=== PATIENT | female | born 1960 | race Caucasian/White ===

== ENCOUNTER → 2016-08-08 | Outpatient (CLI) | payer BC, MEDICARE ==
--- NOTE | 2016-08-28 00:45 | ECWPNPC ---
PATIENT NAME: CARMELA LALA : 1960 GENDER: FEMALE VISIT DATE: 08/08/2016 DISCHARGE DATE: 08/08/16 1626 VISIT LOCKED DATE TIME: PHYSICIAN: JCARLOS GARCIA RESOURCE: JCARLOS GARCIA REASON FOR APPOINTMENT 1. BACK HISTORY OF PRESENT ILLNESS HISTORY OF PRESENT ILLNESS: PAIN THE PATIENT DESCRIBES THE PAIN... FALL RISK SCREENING: SCREENING :NO FALLS IN THE PAST YEAR TODAY'S VISIT: NOTES: RETURNS TODAY FOR FIRST VISIT SINCE 11/27/15. DID HAVE FALL IN 05/28 WITH INCREASE IN PAIN. RATES PAIN TODAY 8-9/10. DESCRIBES PAIN CONSTANT, ACHING, BURNING, SHARP AND STABBING TENDER, THROBBING AND SORE. PAIN IS SHOOTING DOIWN RIGHT LEG BEFORE INJECTION. BOTH LEGS HAVVE HEAVY AND NUMB FEELING OVER ANTERIOR THIGHS TO LEVEL OF KNEE. IS HAVING WEAKNESS IN RIGHT FOOT. IS HAVING INCREASED CONSTIPATION. . CURRENT MEDICATIONS TAKING CARVEDILOL 25 MG TABLET ORALLY TWICE DAILY TAKING LYRICA 100 MG CAPSULE 1 CAPSULE ORALLY THREE TIMES DAILY TAKING VALSARTAN 80 MG TABLET 1 TABLET ORALLY ONCE A DAY TAKING PANTOPRAZOLE SODIUM 40 MG TABLET DELAYED RELEASE 1 TABLET ORALLY ONCE A DAY TAKING ROPINIROLE HCL 0.25 MG TABLET 1 ORALLY TWICE DAILY TAKING PRIMIDONE 250 MG TABLET ONE HALF ORALLY TWICE DAILY TAKING ADVAIR DISKUS 250-50 MCG/DOSE AEROSOL POWDER BREATH ACTIVATED 1 PUFF INHALATION TWICE A DAY TAKING PROAIR HFA 108 (90 BASE) MCG/ACT AEROSOL SOLUTION 2 PUFFS NEEDED INHALATION QID PRN TAKING METFORMIN HCL 500 MG TABLET 1 TABLET WITH MEALS ORALLY TWICE A DAY TAKING TORSEMIDE 20 MG TABLET 2 ORALLY ONCE DAILY TAKING VITAMIN D 54022 U TABLET ORALLY TWICE A MONTH TAKING SAVELLA 25 MG TABLET 1 TABLET ORALLY TWICE A DAY TAKING ASPIRIN ADULT LOW DOSE 81 MG TABLET DELAYED RELEASE 1 TABLET ORALLY ONCE A DAY TAKING LEORA-COLACE 8.6-50 MG TABLET 1 TABLET IN THE EVENING NEEDED ORALLY ONCE A DAY NOT-TAKING VOLTAREN 1 % GEL DIRECTED TRANSDERMAL 4 GRAMS FOUR TIMES DAILY TO LOW BACK MEDICATION LIST REVIEWED AND RECONCILED WITH THE PATIENT PAST MEDICAL HISTORY DIABETES BLADDER WALL THICKENING BLOOD CLOT ON RIGHT OVARY ALLERGIES NEOMYCIN SULFATE: RASH: ALLERGY ADHESIVE TAPE: RASH: ALLERGY EYE DROPS: ALLERGY BACITRACIN: RASH: ALLERGY SURGICAL HISTORY CARPAL TUNNEL ON ELBOW 02/2015 VAGINAL HYSTER 12/2012 KNEE ARTHROSCOPY 09/2007 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 CONSTITUTIONAL: ANY CHANGE IN YOUR MEDICAL CONDITION? YES, CARPAL TUNNEL BILAT, AND PT STATES SHE NEEDS STOMACH SURGERY FOR POOR CARDIAC VALVE FUNCTION . CHILLS NO . FEVER NO . INFECTION: DO YOU HAVE NEW INFECTIONS? NO . DO YOU HAVE HISTORY OF MRSA? NO . MUSCULOSKELETAL: ANY NEW PATTERNS OF PAIN OR NUMBNESS? YES, BILAT THIGH NUMBNESS AFTER LONG PERIODS OF STANDING . GASTROENTEROLOGY: GENERAL TO HAVE GI SURGERY RELATED TO HIATAL HERNIA AND GI BLOATING WITH DR YUAN IN [place]. . ANY NEW CHANGE IN BOWEL CONTROL? YES, CONSTIPATION . GENITOURINARY: ANY NEW CHANGE IN BLADDER CONTROL? NO . IS THERE A CHANCE YOU COULD BE ? NO . HEMATOLOGY/LYMPH: DO YOU TAKE ANY BLOOD THINNERS? (FOR EXAMPLE- COUMADIN, PLAVIX, AGGRENOX, PLATEL, PRADAXA, OR XARELTO) NO . WHEN WAS YOUR LAST DOSE? DATE: TIME: . NEUROLOGY: HAVE YOU FALLEN IN THE PAST 6 MONTHS? YES, PT STATES SHE FELL FROM MISJUDGEMENT ABOUT 1-2 MONTHS AGO. PT STATES SHE SUFFERED CELLULITIS TO RIGHT LOWER LEG A RESULT OF FALL. PT STATES SHE DID SEEK MEDICAL ATTENTION AT [place] [facility] X3. PT STATES SHE RECEIVED IV ABX EACH TIME. . ANY NEW EXTREMITY NUMBNESS OR WEAKNESS? NO . CARDIOLOGY: DO YOU HAVE A PACEMAKER OR DEFIBRILLATOR? NO . RESPIRATORY: HAVE YOU BEEN SICK IN THE PAST WEEK? NO . FEVER NO . FLU LIKE SYMPTOMS? NO . GENERAL TO SEE DR TREVOR YEH FOR COPD PER NEW PCP FOR DYPSNEA, ASTHMA . COUGH NO . INTEGUMENTARY: DO YOU HAVE ANY RASHES OR OPEN SORES? NO . ALLERGIC/IMMUNO: ARE YOU ALLERGIC TO SHELLFISH OR IV DYE? NO . ANY NEW ALLERGIES? NO . PSYCHIATRIC: DO YOU HAVE THOUGHTS OF HURTING YOURSELF OR SOMEONE ELSE? NO . ARE YOU ABUSED, NEGLECTED, OR IN AN UNSAFE ENVIRONMENT? NO . ENDOCRINOLOGY: ARE YOU DIABETIC? YES - BLOOD SUGARS 190'S/ HBA1C&NBSP;. OTHER: DO YOU NEED ANY PRESCRIPTIONS? NO . IF YES, PLEASE LIST: ____ . ANY NEW PROBLEMS WITH YOUR MEDICATIONS? NO . WHEN DID YOU LAST EAT? ____ . WHEN DID YOU LAST DRINK? ____ . WHAT DID YOU LAST DRINK? ____ . NAME OF PERSON DRIVING YOU HOME? ____ . DO YOU HAVE ANY OTHER QUESTIONS OR CONCERNS NO . VITAL SIGNS WT 233 LBS, HT 66 IN, BMI 37.60 INDEX, BP 128/84 MM HG, HR 81 /MIN, RR 16 /MIN, TEMP 99.0 F, OXYGEN SAT % 96, SAFE IN ENV? (Y/N) Y, REVIEWED BY: EM. EXAMINATION GENERAL EXAMINATION: PSYCHALERT , ORIENTED X 3 , APPROPRIATE MOOD AND AFFECT . LUNGS:CLEAR TO AUSCULTATION BILATERALLY. HEART:HEART RATE REGULAR. MUSCULOSKELETAL:POINT TENDERNESS OVER LUMBAR SPINOUS PROCESSES AND OVER RIGHT SACRUM. TENDER TO PALPATION OVER RIGHT SIJ. , TRIGGER POINTS AND TIGHT FIBROUS BANDS IDENTIFIED OVER LEFT NECK AND SCAPULA AND ACROSS LUMBOSACRAL AXIS. , MUSCLE STRENGTH TESTING 5/5 BILATERAL UPPER AND LOWER EXTREMTIES. POSTURE UPRIGHT. GAIT NOANTALGIC. . ASSESSMENTS SACROILIITIS, NOT ELSEWHERE CLASSIFIED - M46.1 (PRIMARY) LOW BACK PAIN - M54.5 TREATMENT SACROILIITIS, NOT ELSEWHERE CLASSIFIED INJECTION ANESTHETIC SACROILIAC JOINTJCARLOS GARCIA 08/08/2016 4:13:06 PM > RIGHT NOTES: DO BLOOD SUGAR MORNING OF PROCEDURE. HOLD BLOOD SUGAR MEDS THE MORNING OF PROCEEDURE. PROCEDURE CODES FA211 ESTABILISHED PATIENT [facility] CHARGE DISPOSITION & COMMUNICATION FOLLOW UP AFTER INJECTION (REASON: CHECK AUTH FOR RIGHT SIJ) ELECTRONICALLY SIGNED BY NAE GARCIA ON 08/27/2016 AT 05:06 PM EDT DISCLAIMER : THIS IS A VISIT SUMMARY EXTRACTED FROM THE [employer] CHART. IT IS NOT A COPY OF THE [employer] PROGRESS NOTE. GABRIEL
== END ==
LOC: M PAIN 15:20
PROVIDERS: ATTEND Nurse Practitioner Family
DX: G89.29 Other chronic pain (principal); M46.1 Sacroiliitis, not elsewhere classified; M54.5 Low back pain; E11.9 Type 2 diabetes mellitus without complications; K59.00 Constipation, unspecified; L23.1 Allergic contact dermatitis due to adhesives; Z88.1 Allergy status to other antibiotic agents; Z88.8 Allergy status to other drugs, medicaments and biological substances; Z79.84 Long term (current) use of oral hypoglycemic drugs; Z79.82 Long term (current) use of aspirin; Z79.899 Other long term (current) drug therapy

== ENCOUNTER → 2016-09-11 | Outpatient (CLI) | payer BC, MEDICARE ==
[~2016-09-11] MED LIST: BUPIVACAINE HCL 0.25% 30 ML VIAL As Ordered ONE; ISOVUE-M 300 61% 15ML VIAL (Q9967) As Ordered ONE; LIDOCAINE 1% SDV INJ 30 ML VIAL As Ordered ONE; TRIAMCINOLONE ACETONIDE SUSP 40 MG/ML VIAL (J3301) As Ordered ONE; diazePAM 5 MG TAB As Ordered ONE; oxyCODONE 5MG TAB As Ordered ONE
--- NOTE | 2016-09-11 13:49 | REP ---
FLUOROSCOPIC GUIDANCE: The images were reviewed with Dr. Cardenas. The patient has a history of low back pain. The portable C-arm is provided in the OR for Dr. Leyva for fluoroscopic guidance. Two intraoperative fluoroscopic spot films are obtained for needle placement verification for bilateral sacroiliac joint. The films are on the PACS system and are available for review. 27 seconds of fluoroscopy time was utilized for this procedure. Reviewed by SOFIA Benavides 09/11/2016 03:02 PEdited and Signed by Meng Cardenas MD 09/11/2016 07:16 P
--- NOTE | 2016-09-26 01:27 | ECWPNPC ---
PATIENT NAME: CARMELA LALA : 1960 GENDER: FEMALE VISIT DATE: 09/11/2016 DISCHARGE DATE: 09/11/16 1047 VISIT LOCKED DATE TIME: PHYSICIAN: CHICO REYNA RESOURCE: CHICO REYNA REASON FOR APPOINTMENT 1. SIJ HISTORY OF PRESENT ILLNESS HISTORY OF PRESENT ILLNESS: PAIN THE PATIENT DESCRIBES THE PAIN... FALL RISK SCREENING: SCREENING :NO FALLS IN THE PAST YEAR CURRENT MEDICATIONS TAKING CARVEDILOL 25 MG TABLET ORALLY TWICE DAILY, NOTES: 09-11-16599 TAKING LYRICA 100 MG CAPSULE 1 CAPSULE ORALLY THREE TIMES DAILY, NOTES: 09-11-16699 TAKING VALSARTAN 80 MG TABLET 1 TABLET ORALLY ONCE A DAY, NOTES: 09-11-16599 TAKING PANTOPRAZOLE SODIUM 40 MG TABLET DELAYED RELEASE 1 TABLET ORALLY ONCE A DAY, NOTES: 09-10-16 1200 TAKING ROPINIROLE HCL 0.25 MG TABLET 1 ORALLY TWICE DAILY, NOTES: 09-11-16599 TAKING PRIMIDONE 250 MG TABLET ONE HALF ORALLY TWICE DAILY, NOTES: 09-11-16599 TAKING ADVAIR DISKUS 250-50 MCG/DOSE AEROSOL POWDER BREATH ACTIVATED 1 PUFF INHALATION TWICE A DAY, NOTES: 09-07-16899 TAKING PROAIR HFA 108 (90 BASE) MCG/ACT AEROSOL SOLUTION 2 PUFFS NEEDED INHALATION QID PRN, NOTES: 09-07-16899 TAKING METFORMIN HCL 500 MG TABLET 1 TABLET WITH MEALS ORALLY TWICE A DAY, NOTES: 09-10-16 190 TAKING TORSEMIDE 20 MG TABLET 2 ORALLY ONCE DAILY, NOTES: 09-11-16599 TAKING VITAMIN D 10493 U TABLET ORALLY TWICE A MONTH, NOTES: 08-12-16899 TAKING SAVELLA 12.5 MG TABLET 1 TABLET ORALLY TWICE A DAY, NOTES: 09-11-16599 TAKING ASPIRIN ADULT LOW DOSE 81 MG TABLET DELAYED RELEASE 1 TABLET ORALLY ONCE A DAY, NOTES: 09-11-16599 NOT-TAKING LEORA-COLACE 8.6-50 MG TABLET 1 TABLET IN THE EVENING NEEDED ORALLY ONCE A DAY, NOTES: NOT TAKING NOT-TAKING VOLTAREN 1 % GEL DIRECTED TRANSDERMAL 4 GRAMS FOUR TIMES DAILY TO LOW BACK MEDICATION LIST REVIEWED AND RECONCILED WITH THE PATIENT PAST MEDICAL HISTORY DIABETES BLADDER WALL THICKENING BLOOD CLOT ON RIGHT OVARY ALLERGIES NEOMYCIN SULFATE: RASH: ALLERGY ADHESIVE TAPE: RASH: ALLERGY EYE DROPS: ALLERGY BACITRACIN: RASH: ALLERGY REVIEW OF SYSTEMS REVIEWED BY: PROVIDER: . CONSTITUTIONAL: ANY CHANGE IN YOUR MEDICAL CONDITION? NO . CHILLS NO . FEVER NO . INFECTION: DO YOU HAVE NEW INFECTIONS? NO . DO YOU HAVE HISTORY OF MRSA? NO . MUSCULOSKELETAL: ANY NEW PATTERNS OF PAIN OR NUMBNESS? NO . GASTROENTEROLOGY: ANY NEW CHANGE IN BOWEL CONTROL? NO . GENITOURINARY: ANY NEW CHANGE IN BLADDER CONTROL? NO . IS THERE A CHANCE YOU COULD BE ? NO . HEMATOLOGY/LYMPH: DO YOU TAKE ANY BLOOD THINNERS? (FOR EXAMPLE- COUMADIN, PLAVIX, AGGRENOX, PLATEL, PRADAXA, OR XARELTO) NO . WHEN WAS YOUR LAST DOSE? DATE: TIME: . NEUROLOGY: HAVE YOU FALLEN IN THE PAST 6 MONTHS? NO . ANY NEW EXTREMITY NUMBNESS OR WEAKNESS? NO . CARDIOLOGY: DO YOU HAVE A PACEMAKER OR DEFIBRILLATOR? NO . RESPIRATORY: HAVE YOU BEEN SICK IN THE PAST WEEK? NO . FEVER NO . FLU LIKE SYMPTOMS? NO . COUGH NO . INTEGUMENTARY: DO YOU HAVE ANY RASHES OR OPEN SORES? NO . ALLERGIC/IMMUNO: ARE YOU ALLERGIC TO SHELLFISH OR IV DYE? NO . ANY NEW ALLERGIES? NO . PSYCHIATRIC: DO YOU HAVE THOUGHTS OF HURTING YOURSELF OR SOMEONE ELSE? NO . ARE YOU ABUSED, NEGLECTED, OR IN AN UNSAFE ENVIRONMENT? NO . ENDOCRINOLOGY: ARE YOU DIABETIC? NO . OTHER: DO YOU NEED ANY PRESCRIPTIONS? NO . IF YES, PLEASE LIST: ____ . ANY NEW PROBLEMS WITH YOUR MEDICATIONS? NO . WHEN DID YOU LAST EAT? ____LAST NIGHT 10 PM . WHEN DID YOU LAST DRINK? ____0630 THIS MORNING . WHAT DID YOU LAST DRINK? ____WATER . NAME OF PERSON DRIVING YOU HOME? ____RICHARD . DO YOU HAVE ANY OTHER QUESTIONS OR CONCERNS NO . VITAL SIGNS WT 234 LBS, HT 66 IN, BMI 37.76 INDEX, BP 113/56 MM HG, HR 74 /MIN, RR 16 /MIN, TEMP 99.2 F, OXYGEN SAT % 96%, NA INITIALS SC 09:04, REVIEWED BY: KG. ASSESSMENTS SACROILIITIS, NOT ELSEWHERE CLASSIFIED - M46.1 (PRIMARY) PROCEDURES PN SI PRE PROCEDURE DIAGNOSIS SACROILIITIS, SACROILIAC JOINT DYSFUNCTION POST PROCEDURE DIAGNOSIS SACROILIITIS, SACROILIAC JOINT DYSFUNCTION PROCEDURE BILATERAL SACROILIAC JOINT BLOCK SURGEON DR. CHICO REYNA SWITCHBOARD MANAGER NONE ANESTHESIA LOCAL PRE PROCEDURE NOTE PATIENT WITH HISTORY OF CHRONIC LOW BACK PAIN. I EVALUATED THE PATIENT AND REVIEWED THE CHART. I WENT OVER THE RISKS, ALTERNATIVES, AND BENEFITS ASSOCIATED WITH THIS PROCEDURE. THE PATIENT WOULD LIKE TO PROCEED AND GAVE CONSENT TO PERFORM THE PROCEDURE. THE PATIENT DENIES UNEXPLAINABLE WEIGHT LOSS, FEVER, CHILLS, OR NEW CHANGES IN URINARY OR BOWEL CONTROL DESCRIPTION OF PROCEDURE THE PATIENT WAS BROUGHT TO THE PROCEDURE ROOM AND PLACED IN THE PRONE POSITION. THE LUMBOSACRAL AREA WAS CLEANED WITH CHLORAPREP SOLUTION AND DRAPED ASEPTICALLY. THE PROCEDURE WAS DONE UNDER STERILE CONDITIONS. I CHECKED LATERALITY AND THE LEVEL WHERE THE PROCEDURE WAS GOING TO BE PERFORMED WITH THE PATIENT AND THE SUPPORTING STAFF AT THE MOMENT OF THE TIME OUT IN THE PROCEDURE ROOM. UNDER FLUOROSCOPIC GUIDANCE, TARGET POINT WAS SELECTED AT THE LOWER BORDER OF THE RIGHT AND LEFT SACROILIAC JOINT. TARGET POINT WAS SELECTED AFTER MEDIAL ROTATION AND TILT OF THE MAGNIFIER OF THE C-ARM. LIDOCAINE WAS USED TO NUMB THE SKIN AND SUBCUTANEOUS TISSUE BELOW IT. A SPINAL NEEDLE, 22-GAUGE, WAS ADVANCED UNDER FLUOROSCOPIC GUIDANCE AND FOLLOWING PATIENT FEEDBACK UNTIL THE TARGET AREA WAS TOUCHED. THE POSITION OF THE NEEDLE WAS VERIFIED WITH AP AND LATERAL VIEWS. AFTER PROPER POSITION OF THE NEEDLE WAS ACHIEVED, ISOVUE M DYE 30%, 0.25 ML, WAS INJECTED SHOWING SPREAD OF THE DYE. THEN, A SOLUTION OF 20 MG OF KENALOG WAS INJECTED IN RIGHT JOINT WITH 3 ML OF BUPIVACAINE 0.125%. THERE WAS NO EVIDENCE OF BLOOD, PARESTHESIA OR CEREBROSPINAL FLUID DURING THE PROCEDURE. THE PATIENT WAS SENT TO THE RECOVERY ROOM. THE PATIENT WAS MOVING THE EXTREMITIES AND DOING WELL. THERE WAS NO COMPLICATION DURING THE PROCEDURE. FLUOROSCOPY TIME WAS 27 SECONDS POST PROCEDURE NOTE THE PATIENT WILL BE SEEN IN A FOLLOW UP IN THE NEXT FEW WEEKS. INSTRUCTIONS WERE GIVEN, QUESTIONS WERE ANSWERED, AND THE PATIENT EXPRESSED UNDERSTANDING AND AGREED WITH THE PLAN. I, KARMEN TY, DOCUMENTED THE ABOVE INFORMATION ACTING A SCRIBE FOR DR. REYNA. I HAVE REVIEWED THE ABOVE DOCUMENT, WRITTEN BY KARMEN HOLDERIBEdgardo AND I VERIFY THAT IT IS [facility] FLUORO GUIDANCE (PAIN)[id number] PROCEDURE CODES 74261 INJECT SACROILIAC JOINT 6045F RADXPS IN END [id number] PXD DISPOSITION & COMMUNICATION FOLLOW UP 3 WEEKS ELECTRONICALLY SIGNED BY CHICO REYNA MD ON 09/25/2016 AT 07:08 PM EDT DISCLAIMER : THIS IS A VISIT SUMMARY EXTRACTED FROM THE [employer] CHART. IT IS NOT A COPY OF THE [employer] PROGRESS NOTE. MTDD
== END ==
LOC: M PAIN 08:40
PROVIDERS: ATTEND Anesthesiology
DX: G89.29 Other chronic pain (principal); M46.1 Sacroiliitis, not elsewhere classified; E11.9 Type 2 diabetes mellitus without complications; L23.3 Allergic contact dermatitis due to drugs in contact with skin; L23.1 Allergic contact dermatitis due to adhesives; Z79.84 Long term (current) use of oral hypoglycemic drugs; Z79.82 Long term (current) use of aspirin; Z79.899 Other long term (current) drug therapy
CPT/HCPCS: G0260; J3301; Q9967

== ENCOUNTER → 2016-10-23 | Outpatient (CLI) | payer BC, MEDICARE ==
--- NOTE | 2016-10-23 17:03 | REP ---
Clinical: Abnormal PFT. Technique: Axial noncontrast chest CT from the thoracic inlet to the upper abdomen imaged during inspiration and expiration with coronal and sagittal re-formations. Findings: Mild chronic linear fibroatelectatic changes are appreciated within the right middle lobe and to a lesser extent the left base. The lung morrison are otherwise well aerated and without consolidation, significant nodule or mass lesion. Comparison between inspiration and expiration imaging demonstrates normal decreased lung volumes without air trapping or subsequent abnormality. No pleural effusion or pneumothorax identified. The tracheobronchial tree is patent. No adenopathy noted. The mediastinum demonstrates normal thoracic aorta and heart/pericardium. No pericardial effusion is identified. The osseous structures are normal for age and without focal abnormality. Limited evaluation of the upper abdomen is grossly unremarkable. Impression: Very minimal chronic fibroatelectatic changes in the right middle lobe and to a lesser extent the left base. Otherwise normal noncontrast chest CT. Signed by Desmond Luevano MD 10/23/2016 08:54 A
== END ==
LOC: M RAD 08:12
PROVIDERS: ATTEND Internal Medicine Pulmonary Disease
DX: R94.2 Abnormal results of pulmonary function studies (principal)

== ENCOUNTER → 2016-10-31 | Outpatient (CLI) | payer BC, MEDICARE ==
--- NOTE | 2016-11-28 01:08 | ECWPNPC ---
PATIENT NAME: CARMELA LALA : 1960 GENDER: FEMALE VISIT DATE: 10/31/2016 DISCHARGE DATE: 10/31/16 1634 VISIT LOCKED DATE TIME: PHYSICIAN: JCARLOS GARCIA RESOURCE: JCARLOS GARCIA REASON FOR APPOINTMENT 1. BACK HISTORY OF PRESENT ILLNESS HISTORY OF PRESENT ILLNESS: PAIN THE PATIENT DESCRIBES THE PAIN... FALL RISK SCREENING: SCREENING :NO FALLS IN THE PAST YEAR TODAY'S VISIT: NOTES: S/P BILATERAL SIJ INJECTION ON 09/17/16. NOTES THE MIFDDLE BACK IS THE WORST AREA OF PAIN. NOTES THAT THE TREATED AREA AND THE HIPS ARE FEELING AREA. IS STILL HAVING SOME N/T IN LEGS PERTICULARLY WHEN STANDING. DR SERRANO FEELS THIS MAY BE MERALGIA PARESTHESICA. NO N/T IN FEET. SLEEP HAS IMPROVED RECENTLY. CURRENT MEDICATIONS TAKING CARVEDILOL 25 MG TABLET ORALLY TWICE DAILY TAKING LYRICA 100 MG CAPSULE 1 CAPSULE ORALLY THREE TIMES DAILY TAKING VALSARTAN 80 MG TABLET 1 TABLET ORALLY ONCE A DAY TAKING PANTOPRAZOLE SODIUM 40 MG TABLET DELAYED RELEASE 1 TABLET ORALLY ONCE A DAY TAKING ROPINIROLE HCL 0.25 MG TABLET 1 ORALLY TWICE DAILY TAKING PRIMIDONE 250 MG TABLET ONE HALF ORALLY TWICE DAILY TAKING ADVAIR DISKUS 250-50 MCG/DOSE AEROSOL POWDER BREATH ACTIVATED 1 PUFF INHALATION TWICE A DAY TAKING PROAIR HFA 108 (90 BASE) MCG/ACT AEROSOL SOLUTION 2 PUFFS NEEDED INHALATION QID PRN TAKING METFORMIN HCL 500 MG TABLET 1 TABLET WITH MEALS ORALLY TWICE A DAY TAKING TORSEMIDE 20 MG TABLET 2 ORALLY ONCE DAILY TAKING VITAMIN D 54661 U TABLET ORALLY TWICE A MONTH TAKING ASPIRIN ADULT LOW DOSE 81 MG TABLET DELAYED RELEASE 1 TABLET ORALLY ONCE A DAY NOT-TAKING SAVELLA 12.5 MG TABLET 1 TABLET ORALLY TWICE A DAY, NOTES: 09-11-16 0600 NOT-TAKING LEORA-COLACE 8.6-50 MG TABLET 1 TABLET IN THE EVENING NEEDED ORALLY ONCE A DAY, NOTES: NOT TAKING NOT-TAKING VOLTAREN 1 % GEL DIRECTED TRANSDERMAL 4 GRAMS FOUR TIMES DAILY TO LOW BACK MEDICATION LIST REVIEWED AND RECONCILED WITH THE PATIENT PAST MEDICAL HISTORY DIABETES BLADDER WALL THICKENING BLOOD CLOT ON RIGHT OVARY ALLERGIES NEOMYCIN SULFATE: RASH: ALLERGY ADHESIVE TAPE: RASH: ALLERGY EYE DROPS: ALLERGY BACITRACIN: RASH: ALLERGY REVIEW OF SYSTEMS REVIEWED BY: PROVIDER: JCARLOS GARCIA [employer] SALES DEVELOPMENT ASSOCIATE . CONSTITUTIONAL: ANY CHANGE IN YOUR MEDICAL CONDITION? HAVING SURGERY SATURDAY /// ZAIDA FUNDAPLICATION . CHILLS NO . FEVER NO . INFECTION: DO YOU HAVE NEW INFECTIONS? NO . DO YOU HAVE HISTORY OF MRSA? NO . MUSCULOSKELETAL: ANY NEW PATTERNS OF PAIN OR NUMBNESS? YES, IN THE MIDDLE OF THE BACK/ TENDER AND SORE . GASTROENTEROLOGY: ANY NEW CHANGE IN BOWEL CONTROL? NO . GENITOURINARY: ANY NEW CHANGE IN BLADDER CONTROL? NO . IS THERE A CHANCE YOU COULD BE ? NO . HEMATOLOGY/LYMPH: DO YOU TAKE ANY BLOOD THINNERS? (FOR EXAMPLE- COUMADIN, PLAVIX, AGGRENOX, PLATEL, PRADAXA, OR XARELTO) NO . WHEN WAS YOUR LAST DOSE? DATE: TIME: . NEUROLOGY: HAVE YOU FALLEN IN THE PAST 6 MONTHS? YES, FELL OVER A HOLE IN THE YARD / HURT HER KNEES . ANY NEW EXTREMITY NUMBNESS OR WEAKNESS? NO . CARDIOLOGY: DO YOU HAVE A PACEMAKER OR DEFIBRILLATOR? NO . RESPIRATORY: HAVE YOU BEEN SICK IN THE PAST WEEK? NO . FEVER NO . FLU LIKE SYMPTOMS? NO . COUGH NO . INTEGUMENTARY: DO YOU HAVE ANY RASHES OR OPEN SORES? NO . ALLERGIC/IMMUNO: ARE YOU ALLERGIC TO SHELLFISH OR IV DYE? NO . ANY NEW ALLERGIES? NO . PSYCHIATRIC: DO YOU HAVE THOUGHTS OF HURTING YOURSELF OR SOMEONE ELSE? NO . ARE YOU ABUSED, NEGLECTED, OR IN AN UNSAFE ENVIRONMENT? NO . ENDOCRINOLOGY: ARE YOU DIABETIC? YES . OTHER: DO YOU NEED ANY PRESCRIPTIONS? NO . IF YES, PLEASE LIST: ____ . ANY NEW PROBLEMS WITH YOUR MEDICATIONS? NO . WHEN DID YOU LAST EAT? ____ . WHEN DID YOU LAST DRINK? ____ . WHAT DID YOU LAST DRINK? ____ . NAME OF PERSON DRIVING YOU HOME? ____ . DO YOU HAVE ANY OTHER QUESTIONS OR CONCERNS NO . VITAL SIGNS WT 237 LBS, HT 66 IN, BMI 38.25 INDEX, BP 122/62 MM HG, HR 75 /MIN, RR 16 /MIN, TEMP 98.2 F, OXYGEN SAT % 93%, NA INITIALS AW 1549. EXAMINATION GENERAL EXAMINATION: PSYCHALERT , ORIENTED X 3 , AFFECT FLAT. LUNGS:CLEAR TO AUSCULTATION BILATERALLY. HEART:HEART RATE REGULAR. MUSCULOSKELETAL:POINT TENDERNESS OVER LUMBAR SPINOUS PROCESSES . EXTREMITIES:FEW INSECT BITES RIGHT GOYAL . ASSESSMENTS SACROILIITIS, NOT ELSEWHERE CLASSIFIED - M46.1 (PRIMARY) LOW BACK PAIN - M54.5 TREATMENT SACROILIITIS, NOT ELSEWHERE CLASSIFIED NOTES: WALK EVERY DAY. KEEP UP GOOD WORK WITH PEDOMETER. DISPOSITION & COMMUNICATION FOLLOW UP 6 WEEKS (REASON: BACK PAIN) ELECTRONICALLY SIGNED BY NAE GARCIA ON 11/27/2016 AT 02:40 PM EDT DISCLAIMER : THIS IS A VISIT SUMMARY EXTRACTED FROM THE [employer] CHART. IT IS NOT A COPY OF THE [employer] PROGRESS NOTE. MTDD
== END ==
LOC: M PAIN 15:00
PROVIDERS: ATTEND Nurse Practitioner Family
DX: G89.29 Other chronic pain (principal); M46.1 Sacroiliitis, not elsewhere classified; M54.5 Low back pain; E11.9 Type 2 diabetes mellitus without complications; L23.1 Allergic contact dermatitis due to adhesives; Z88.1 Allergy status to other antibiotic agents; Z88.8 Allergy status to other drugs, medicaments and biological substances; Z79.84 Long term (current) use of oral hypoglycemic drugs; Z79.82 Long term (current) use of aspirin; Z79.899 Other long term (current) drug therapy

== ENCOUNTER → 2017-01-07 | Outpatient (CLI) | payer BC, MEDICARE ==
--- NOTE | 2017-01-26 00:44 | ECWPNPC ---
PATIENT NAME: CARMELA LALA : 1960 GENDER: FEMALE VISIT DATE: 01/07/2017 DISCHARGE DATE: 01/07/17 1630 VISIT LOCKED DATE TIME: PHYSICIAN: JCARLOS GARCIA RESOURCE: JCARLOS GARCIA REASON FOR APPOINTMENT 1. BACK PAIN HISTORY OF PRESENT ILLNESS HISTORY OF PRESENT ILLNESS: PAIN THE PATIENT DESCRIBES THE PAIN... FALL RISK SCREENING: SCREENING :NO FALLS IN THE PAST YEAR TODAY'S VISIT: NOTES: NOTES WORST OF PAIN IS IN UPPER BACK NEAR LEFT SHOULDERBALDE. LOW BACK AND HIPS PAIN IS UNDER CONTROL RATES PAIN TODAY 09/20. HAD VENRAL HERNIA REPAIR 10/31/16 AND GASTRIC BYPASS SURGERY. HAS LOST WEIGHT. HAS BEEN INSTRUCTED TO CRUSH MEDS. . CURRENT MEDICATIONS TAKING CARVEDILOL 25 MG TABLET ORALLY TWICE DAILY TAKING LYRICA 100 MG CAPSULE 1 CAPSULE ORALLY THREE TIMES DAILY TAKING VALSARTAN 40 MG TABLET 1 TABLET ORALLY ONCE A DAY TAKING PANTOPRAZOLE SODIUM 40 MG TABLET DELAYED RELEASE 1 TABLET ORALLY ONCE A DAY TAKING PRIMIDONE 250 MG TABLET ONE HALF ORALLY TWICE DAILY TAKING TORSEMIDE 20 MG TABLET 2 ORALLY ONCE DAILY TAKING ASPIRIN ADULT LOW DOSE 81 MG TABLET DELAYED RELEASE 1 TABLET ORALLY ONCE A DAY NOT-TAKING ROPINIROLE HCL 0.25 MG TABLET 1 ORALLY TWICE DAILY NOT-TAKING ADVAIR DISKUS 250-50 MCG/DOSE AEROSOL POWDER BREATH ACTIVATED 1 PUFF INHALATION TWICE A DAY NOT-TAKING PROAIR HFA 108 (90 BASE) MCG/ACT AEROSOL SOLUTION 2 PUFFS NEEDED INHALATION QID PRN NOT-TAKING METFORMIN HCL 500 MG TABLET 1 TABLET WITH MEALS ORALLY TWICE A DAY NOT-TAKING VITAMIN D 32502 U TABLET ORALLY TWICE A MONTH UNKNOWN SAVELLA 12.5 MG TABLET 1 TABLET ORALLY TWICE A DAY, NOTES: 09-11-16 0600 UNKNOWN LEORA-COLACE 8.6-50 MG TABLET 1 TABLET IN THE EVENING NEEDED ORALLY ONCE A DAY, NOTES: NOT TAKING UNKNOWN VOLTAREN 1 % GEL DIRECTED TRANSDERMAL 4 GRAMS FOUR TIMES DAILY TO LOW BACK MEDICATION LIST REVIEWED AND RECONCILED WITH THE PATIENT PAST MEDICAL HISTORY DIABETES BLADDER WALL THICKENING BLOOD CLOT ON RIGHT OVARY ALLERGIES NEOMYCIN SULFATE: RASH: ALLERGY ADHESIVE TAPE: RASH: ALLERGY EYE DROPS: ALLERGY BACITRACIN: RASH: ALLERGY SURGICAL HISTORY CARPAL TUNNEL ON ELBOW 02/2015 VAGINAL HYSTER 12/2012 KNEE ARTHROSCOPY 09/2007 ACOUSTIC NEUROMA 08/1995 ENDOMETRIOSIS LAPROSCOPY 10/1991 LEFT EAR OPERATION 12/1989 GALL BLADDER 01/1985 WT LOSS SURGERY 2017 SOCIAL HISTORY GENERAL: TOBACCO USE ARE YOU A:FORMER SMOKER RECREATIONAL DRUG USE DRUG USE?NO CAFFEINE CAFFEINE USE?YES HOW OFTEN AND HOW MUCH? 2 CUPS PER DAY PSYCHOLOGICAL HX TREATMENTNO PAIN CLINIC PFS, CLERGY, PUBLIC HEALTH REFERRALS CLERGY REFERRAL NEEDED?NO WAS THE PROVIDER NOTIFIED OF ANY PERTINENT INFO?YES PFS REFERRAL NEEDED?NO PUBLIC HEALTH REFERRAL NEEDED?NO PATIENT: ____. ADVANCE DIRECTIVES HEALTH CARE PROXY?YES POWER OF AUTH SPECIALIST?NO NAME OF HCP JG LALA-SPOUSE CONTACT # FOR HCP [phone] REVIEW OF SYSTEMS REVIEWED BY: PROVIDER: . CONSTITUTIONAL: ANY CHANGE IN YOUR MEDICAL CONDITION? WT LOSS HAS ALLOWED HER TO STOP METFORMIN AND INHALERS. SHE FEELS SO MUCH BETTER NOW. . CHILLS NO . FEVER NO . INFECTION: DO YOU HAVE NEW INFECTIONS? NO . DO YOU HAVE HISTORY OF MRSA? NO . MUSCULOSKELETAL: ANY NEW PATTERNS OF PAIN OR NUMBNESS? NO . GASTROENTEROLOGY: ANY NEW CHANGE IN BOWEL CONTROL? NO . GENITOURINARY: ANY NEW CHANGE IN BLADDER CONTROL? NO . IS THERE A CHANCE YOU COULD BE ? NO . HEMATOLOGY/LYMPH: DO YOU TAKE ANY BLOOD THINNERS? (FOR EXAMPLE- COUMADIN, PLAVIX, AGGRENOX, PLATEL, PRADAXA, OR XARELTO) NO . WHEN WAS YOUR LAST DOSE? DATE: TIME: . NEUROLOGY: HAVE YOU FALLEN IN THE PAST 6 MONTHS? NO . ANY NEW EXTREMITY NUMBNESS OR WEAKNESS? NO . CARDIOLOGY: DO YOU HAVE A PACEMAKER OR DEFIBRILLATOR? NO . RESPIRATORY: HAVE YOU BEEN SICK IN THE PAST WEEK? NO . FEVER NO . FLU LIKE SYMPTOMS? NO . COUGH NO . INTEGUMENTARY: DO YOU HAVE ANY RASHES OR OPEN SORES? NO . ALLERGIC/IMMUNO: ARE YOU ALLERGIC TO SHELLFISH OR IV DYE? NO . ANY NEW ALLERGIES? NO . PSYCHIATRIC: DO YOU HAVE THOUGHTS OF HURTING YOURSELF OR SOMEONE ELSE? NO . ARE YOU ABUSED, NEGLECTED, OR IN AN UNSAFE ENVIRONMENT? NO . ENDOCRINOLOGY: ARE YOU DIABETIC? YES . OTHER: DO YOU NEED ANY PRESCRIPTIONS? NO . IF YES, PLEASE LIST: ____ . ANY NEW PROBLEMS WITH YOUR MEDICATIONS? NO . WHEN DID YOU LAST EAT? ____ . WHEN DID YOU LAST DRINK? ____ . WHAT DID YOU LAST DRINK? ____ . NAME OF PERSON DRIVING YOU HOME? ____ . DO YOU HAVE ANY OTHER QUESTIONS OR CONCERNS NO . VITAL SIGNS WT 215 LBS, HT 66 IN, BMI 34.70 INDEX, BP 111/53 MM HG, HR 50 /MIN, RR 16 /MIN, TEMP 97.5 F, OXYGEN SAT % 96%, NA INITIALS SC 15:33, REVIEWED BY: NL. EXAMINATION GENERAL EXAMINATION: PSYCHALERT , ORIENTED X 3 , AFFECT FLAT. LUNGS:CLEAR TO AUSCULTATION BILATERALLY. HEART:HEART RATE REGULAR. MUSCULOSKELETAL:POINT TENDERNESS OVER LUMBAR SPINOUS PROCESSES , TRIGGER POINTS:, ELICITED WITH PALPATION OVER LEFT SCAPULA AND ACROSS THE TRAPEZIUS MUSCLES BILATERALLY. RESTRICTION OF ROM IS NOTED. . ASSESSMENTS SACROILIITIS, NOT ELSEWHERE CLASSIFIED - M46.1 (PRIMARY) LOW BACK PAIN - M54.5 MYALGIA - M79.1 TREATMENT SACROILIITIS, NOT ELSEWHERE CLASSIFIED TRIGGER POINT 3 + JCARLOS BAHENA 01/07/2017 4:11:07 PM > LEFT SHOULDER BLADE NOTES: WALK EVERY DAY. KEEP WORKING [id number] STEP GOAL. PREVENTIVE MEDICINE REVIEWED PRE PROCEDURE INSTRUCTIONS WITH UNDERSTANDING EXPRESSED. PROCEDURE CODES FA211 ESTABILISHED PATIENT [facility] FAC[facility] CHARGE DISPOSITION & COMMUNICATION FOLLOW UP AFTER INJECTION (REASON: CHECK AUTH FOR TPI LEFT SHOULDER BLADE) ELECTRONICALLY SIGNED BY NAE GARCIA ON 01/25/2017 AT 08:02 PM EST DISCLAIMER : THIS IS A VISIT SUMMARY EXTRACTED FROM THE [employer] CHART. IT IS NOT A COPY OF THE [employer] PROGRESS NOTE. GABRIEL
== END ==
LOC: M PAIN 15:00
PROVIDERS: ATTEND Nurse Practitioner Family
DX: G89.29 Other chronic pain (principal); M46.1 Sacroiliitis, not elsewhere classified; M54.5 Low back pain; M79.1 Myalgia; E11.9 Type 2 diabetes mellitus without complications; L23.1 Allergic contact dermatitis due to adhesives; Z88.1 Allergy status to other antibiotic agents; Z88.8 Allergy status to other drugs, medicaments and biological substances; Z87.891 Personal history of nicotine dependence; Z79.82 Long term (current) use of aspirin; Z79.899 Other long term (current) drug therapy

== ENCOUNTER → 2017-02-20 | Outpatient (CLI) | payer BC, MEDICARE ==
[~2017-02-20] MED LIST changes: +BUPIVACAINE HCL 0.25% 10 ML VIAL As Ordered; +BUPIVACAINE HCL 0.25% 30 ML VIAL As Ordered; -BUPIVACAINE HCL 0.25% 30 ML VIAL As Ordered ONE; -ISOVUE-M 300 61% 15ML VIAL (Q9967) As Ordered ONE; -LIDOCAINE 1% SDV INJ 30 ML VIAL As Ordered ONE; +TRIAMCINOLONE ACETONIDE SUSP 40 MG/ML VIAL (J3301) As Ordered; -TRIAMCINOLONE ACETONIDE SUSP 40 MG/ML VIAL (J3301) As Ordered ONE; +diazePAM 5 MG TAB As Ordered; -diazePAM 5 MG TAB As Ordered ONE; +oxyCODONE 5MG TAB As Ordered; -oxyCODONE 5MG TAB As Ordered ONE
== END ==
LOC: M PAIN 15:15
DX: G89.29 Other chronic pain (principal); M54.6 Pain in thoracic spine; M79.1 Myalgia; E11.9 Type 2 diabetes mellitus without complications; Z88.1 Allergy status to other antibiotic agents; Z88.8 Allergy status to other drugs, medicaments and biological substances; Z91.048 Other nonmedicinal substance allergy status; Z79.82 Long term (current) use of aspirin; Z79.899 Other long term (current) drug therapy
CPT/HCPCS: J3301

== ENCOUNTER → 2017-03-06 | Outpatient (CLI) | payer BC, MEDICARE | LOC: M PAIN 15:15 | DX: M54.2 Cervicalgia (principal); M79.1 Myalgia; K59.00 Constipation, unspecified; E11.9 Type 2 diabetes mellitus without complications; Z79.82 Long term (current) use of aspirin; Z79.899 Other long term (current) drug therapy; Z88.1 Allergy status to other antibiotic agents; Z88.8 Allergy status to other drugs, medicaments and biological substances; Z91.048 Other nonmedicinal substance allergy status | CPT/HCPCS: G0463 ==

== ENCOUNTER → 2017-04-09 | Outpatient (CLI) | payer BC, MEDICARE | LOC: M PAIN 14:45 | DX: G89.29 Other chronic pain (principal); M79.1 Myalgia; M54.6 Pain in thoracic spine; E11.9 Type 2 diabetes mellitus without complications; Z87.891 Personal history of nicotine dependence; Z88.1 Allergy status to other antibiotic agents; Z88.8 Allergy status to other drugs, medicaments and biological substances; Z91.048 Other nonmedicinal substance allergy status; Z79.82 Long term (current) use of aspirin; Z79.899 Other long term (current) drug therapy | CPT/HCPCS: J3301 ==

== ENCOUNTER → 2017-04-29 | Outpatient (CLI) | payer BC, MEDICARE | LOC: M PAIN 15:15 | DX: M79.1 Myalgia (principal); M54.2 Cervicalgia; E11.9 Type 2 diabetes mellitus without complications; Z79.82 Long term (current) use of aspirin; Z79.899 Other long term (current) drug therapy; Z88.1 Allergy status to other antibiotic agents; Z88.8 Allergy status to other drugs, medicaments and biological substances; Z91.09 Other allergy status, other than to drugs and biological substances; Z98.84 Bariatric surgery status; Z87.891 Personal history of nicotine dependence | CPT/HCPCS: G0463 ==

== ENCOUNTER → 2017-05-27 | Outpatient (CLI) | payer BC, MEDICARE ==
[~2017-05-27] MED LIST changes: -BUPIVACAINE HCL 0.25% 10 ML VIAL As Ordered; +ISOVUE-M 300 61% 15ML VIAL (Q9967) As Ordered; +LIDOCAINE 1% SDV INJ 30 ML VIAL As Ordered
== END ==
LOC: M PAIN 11:45
DX: G89.29 Other chronic pain (principal); M47.812 Spondylosis without myelopathy or radiculopathy, cervical region; E11.9 Type 2 diabetes mellitus without complications; Z79.82 Long term (current) use of aspirin; Z79.899 Other long term (current) drug therapy; Z88.1 Allergy status to other antibiotic agents; Z88.8 Allergy status to other drugs, medicaments and biological substances; Z91.09 Other allergy status, other than to drugs and biological substances; Z98.84 Bariatric surgery status
CPT/HCPCS: J3301

== ENCOUNTER → 2017-08-02 | Outpatient (CLI) | payer BC, MEDICARE | LOC: M PAIN 14:15 | DX: M47.812 Spondylosis without myelopathy or radiculopathy, cervical region (principal); M79.1 Myalgia; Z79.82 Long term (current) use of aspirin; Z79.899 Other long term (current) drug therapy; Z88.1 Allergy status to other antibiotic agents; Z91.09 Other allergy status, other than to drugs and biological substances; Z87.891 Personal history of nicotine dependence | CPT/HCPCS: G0463 ==

== ENCOUNTER → 2017-08-27 | Outpatient (CLI) | payer BC, MEDICARE ==
[~2017-08-27] MED LIST changes: +BUPIVACAINE HCL 0.25% 10 ML VIAL As Ordered; -ISOVUE-M 300 61% 15ML VIAL (Q9967) As Ordered; -LIDOCAINE 1% SDV INJ 30 ML VIAL As Ordered
== END ==
LOC: M PAIN 14:30
DX: G89.29 Other chronic pain (principal); M79.1 Myalgia; M54.5 Low back pain; Z79.82 Long term (current) use of aspirin; Z79.899 Other long term (current) drug therapy; Z88.1 Allergy status to other antibiotic agents; Z88.8 Allergy status to other drugs, medicaments and biological substances; Z91.09 Other allergy status, other than to drugs and biological substances; Z98.84 Bariatric surgery status; Z87.891 Personal history of nicotine dependence
CPT/HCPCS: J3301

== ENCOUNTER → 2017-09-18 | Outpatient (CLI) | payer BC, MEDICARE | LOC: M PAIN 13:00 | DX: M54.16 Radiculopathy, lumbar region (principal); M51.26 Other intervertebral disc displacement, lumbar region; M79.1 Myalgia; Z79.82 Long term (current) use of aspirin; Z79.899 Other long term (current) drug therapy; Z87.891 Personal history of nicotine dependence; Z88.8 Allergy status to other drugs, medicaments and biological substances; Z91.048 Other nonmedicinal substance allergy status; Z90.710 Acquired absence of both cervix and uterus | CPT/HCPCS: G0463 ==

== ENCOUNTER → 2017-11-14 | Outpatient (CLI) | payer BC, MEDICARE ==
[~2017-11-14] MED LIST changes: -BUPIVACAINE HCL 0.25% 10 ML VIAL As Ordered; -BUPIVACAINE HCL 0.25% 30 ML VIAL As Ordered; +ISOVUE-M 300 61% 15ML VIAL (Q9967) As Ordered; +LIDOCAINE 1% SDV INJ 30 ML VIAL As Ordered; -TRIAMCINOLONE ACETONIDE SUSP 40 MG/ML VIAL (J3301) As Ordered; +methylPREDNISolone SUSP 40 MG/ML (DEPO-medrol) VIAL (J1030) As Ordered
== END ==
LOC: M PAIN 08:45
DX: M51.16 Intervertebral disc disorders with radiculopathy, lumbar region (principal); M48.062 Spinal stenosis, lumbar region with neurogenic claudication; I35.1 Nonrheumatic aortic (valve) insufficiency; Z87.891 Personal history of nicotine dependence; Z79.82 Long term (current) use of aspirin; Z79.899 Other long term (current) drug therapy; H91.93 Unspecified hearing loss, bilateral; Z88.1 Allergy status to other antibiotic agents; Z88.8 Allergy status to other drugs, medicaments and biological substances; Z91.048 Other nonmedicinal substance allergy status
CPT/HCPCS: J1030

== ENCOUNTER → 2017-11-22 | Outpatient (CLI) | payer BC, MEDICARE | LOC: M PAIN 11:45 | DX: M79.18 Myalgia, other site (principal); M54.16 Radiculopathy, lumbar region; M51.26 Other intervertebral disc displacement, lumbar region; Z79.82 Long term (current) use of aspirin; Z79.899 Other long term (current) drug therapy; Z88.1 Allergy status to other antibiotic agents; Z88.8 Allergy status to other drugs, medicaments and biological substances; Z91.09 Other allergy status, other than to drugs and biological substances; Z87.891 Personal history of nicotine dependence | CPT/HCPCS: G0463 ==

== ENCOUNTER → 2017-12-17 | Outpatient (CLI) | payer BC, MEDICARE ==
[~2017-12-17] MED LIST changes: +BUPIVACAINE HCL 0.25% 10 ML VIAL As Ordered; +BUPIVACAINE HCL 0.25% 30 ML VIAL As Ordered; -ISOVUE-M 300 61% 15ML VIAL (Q9967) As Ordered; -LIDOCAINE 1% SDV INJ 30 ML VIAL As Ordered; +TRIAMCINOLONE ACETONIDE SUSP 40 MG/ML VIAL (J3301) As Ordered; -methylPREDNISolone SUSP 40 MG/ML (DEPO-medrol) VIAL (J1030) As Ordered
== END ==
LOC: M PAIN 08:30
DX: M79.18 Myalgia, other site (principal); M25.511 Pain in right shoulder; M54.6 Pain in thoracic spine; Z79.82 Long term (current) use of aspirin; Z79.899 Other long term (current) drug therapy; Z88.1 Allergy status to other antibiotic agents; Z88.2 Allergy status to sulfonamides; Z88.8 Allergy status to other drugs, medicaments and biological substances; Z91.09 Other allergy status, other than to drugs and biological substances; Z87.891 Personal history of nicotine dependence; Z86.79 Personal history of other diseases of the circulatory system
CPT/HCPCS: J3301

== ENCOUNTER → 2018-04-17 | Outpatient (CLI) | payer BC, MEDICARE ==
--- NOTE | 2018-05-05 00:14 | ECWPNPC ---
PATIENT NAME: CARMELA LALA : 1960 GENDER: FEMALE VISIT DATE: 04/17/2018 DISCHARGE DATE: 04/17/18 1231 VISIT LOCKED DATE TIME: PHYSICIAN: NADINE MEJIA RESOURCE: NADINE MEJIA REASON FOR APPOINTMENT 1. SW WA, POST TPI HISTORY OF PRESENT ILLNESS HISTORY OF PRESENT ILLNESS: HERE FOR F/U OF CHRONIC GENERALIZED BACK PAIN.THIS BEGAN AFTER A FALL INJURY 3 YEARS AGO.THIS IS A POST PROCEDURE F/U.HAD TPI RIGHT SHOULDER AND RIGHT THORACIC ON 12/17/18.CONTINUES TO BENEFIT FROM THIS.CHIEF AREA OF PAIN IS RIGHT NECK.REVIEWED CERVICAL MRI AND DISCUSSED TREATMENT OPTIONS.RATING PAIN VAS 6/10. PAIN THE PATIENT DESCRIBES THE PAIN... FALL RISK SCREENING: SCREENING : NO FALLS IN THE PAST YEAR. CURRENT MEDICATIONS TAKING CARVEDILOL 12.5 MG TABLET ORALLY TWICE DAILY TAKING LYRICA 100 MG CAPSULE 1 CAPSULE ORALLY THREE TIMES DAILY TAKING PRIMIDONE 250 MG TABLET ONE HALF ORALLY TWICE DAILY TAKING TORSEMIDE 20 MG TABLET 2 ORALLY ONCE DAILY TAKING ASPIRIN ADULT LOW DOSE 81 MG TABLET DELAYED RELEASE 1 TABLET ORALLY ONCE A DAY TAKING VITAMIN D3 - LIQUID 25 MGS ORALLY DAILY TAKING ASPERCREME 10 % LOTION EXTERNALLY TAKING POTASSIUM BICARB-CITRIC ACID 10 MEQ TABLET EFFERVESCENT 1 TABLET ORALLY TWICE A DAY UNKNOWN MIRALAX SUSPENSION 17 GRAMS ORALLY AT HOUR OF SLEEP NEEDED, NOTES: NONE RECENTLY UNKNOWN ACETAMINOPHEN 325 MG TABLET 1 TABLET NEEDED ORALLY EVERY 4 HRS, NOTES: NONE RECENYLY MEDICATION LIST REVIEWED AND RECONCILED WITH THE PATIENT PAST MEDICAL HISTORY BLADDER WALL THICKENING BLOOD CLOT ON RIGHT OVARY LOW BACK PAIN CARPAL TUNNEL LEFT AND LEFT ELBOW PAIN AORTIC STENOSIS AND HEART MURMUR BICUSPID, AORTIC VALVE LOW POTASSIUM NEW DX ODF DEPPRESSION ALLERGIES NEOMYCIN SULFATE: RASH - ALLERGY ADHESIVE TAPE: RASH - ALLERGY BACITRACIN: RASH - ALLERGY FLOURACINE EYE DROPS: BURNING,ITCHY AND SWOLLEN EYES - ALLERGY SURGICAL HISTORY CARPAL TUNNEL ON ELBOW LEFT 02/2015 VAGINAL HYSTER 12/2012 KNEE ARTHROSCOPY-LEFT 09/2007 ACOUSTIC NEUROMA 08/1995 ENDOMETRIOSIS LAPROSCOPY 10/1991 LEFT EAR OPERATION 12/1989 GALL BLADDER 01/1985 OPEN ZAIDA FUNDOPLICATION 01/01/2017 APPENDECTOMY/ CYST REMOVED RIGHT OVARY 1974 LEFT CARPEL TUNNEL ELBOW AND HAND 11 FAMILY HISTORY FATHER: , DIAGNOSED WITH HYPERTENSION, HEART DISEASE, CANCER MOTHER: , DIABETES, HEART DISEASE, STROKE 2DAUGHTER(S) - HEALTHY. DAD-PROSTATE AND LUNG CADAUGHTER - BIPOLARDAUGHTER - HIGH CALCIUMBROGTHER DIALYSIS, IDDM. HOSPITALIZATION/MAJOR DIAGNOSTIC PROCEDURE CHESTPAIN R/O DC 2013 SURGERIES REVIEW OF SYSTEMS REVIEWED BY: PROVIDER: NADINE SCHWARTZ . CONSTITUTIONAL: ANY CHANGE IN YOUR MEDICAL CONDITION? LAST SATURDAY FELT SICK ..ENERGY AND STARTED FEELING BETTER YESTERDA . CHILLS NO . FEVER NO . INFECTION: DO YOU HAVE NEW INFECTIONS? NO . DO YOU HAVE HISTORY OF MRSA? NO . MUSCULOSKELETAL: ANY NEW PATTERNS OF PAIN OR NUMBNESS? NO . GASTROENTEROLOGY: ANY NEW CHANGE IN BOWEL CONTROL? NO . GENITOURINARY: ANY NEW CHANGE IN BLADDER CONTROL? NO . IS THERE A CHANCE YOU COULD BE ? NO . HEMATOLOGY/LYMPH: DO YOU TAKE ANY BLOOD THINNERS? (FOR EXAMPLE- COUMADIN, PLAVIX, AGGRENOX, PLATEL, PRADAXA, OR XARELTO) NO . WHEN WAS YOUR LAST DOSE? DATE: TIME: . NEUROLOGY: HAVE YOU FALLEN IN THE PAST 12 MONTHS? NO . ANY NEW EXTREMITY NUMBNESS OR WEAKNESS? NO . CARDIOLOGY: DO YOU HAVE A PACEMAKER OR DEFIBRILLATOR? NO . RESPIRATORY: HAVE YOU BEEN SICK IN THE PAST WEEK? NO . FEVER NO . FLU LIKE SYMPTOMS? NO . COUGH NO . INTEGUMENTARY: DO YOU HAVE ANY RASHES OR OPEN SORES? NO . ALLERGIC/IMMUNO: ARE YOU ALLERGIC TO IV DYE? NO . ANY NEW ALLERGIES? NO . PSYCHIATRIC: DO YOU HAVE THOUGHTS OF HURTING YOURSELF OR SOMEONE ELSE? NO . ARE YOU ABUSED, NEGLECTED, OR IN AN UNSAFE ENVIRONMENT? NO . ENDOCRINOLOGY: ARE YOU DIABETIC? NO . OTHER: DO YOU NEED ANY PRESCRIPTIONS? NO . IF YES, PLEASE LIST: ____ . ANY NEW PROBLEMS WITH YOUR MEDICATIONS? NO . WHEN DID YOU LAST EAT? ____ . WHEN DID YOU LAST DRINK? ____ . WHAT DID YOU LAST DRINK? ____ . NAME OF PERSON DRIVING YOU HOME? ____ . DO YOU HAVE ANY OTHER QUESTIONS OR CONCERNS PT OIS SEEING A THERAPIST ONCE A WEEK [place] . VITAL SIGNS WT 230 LBS, HT 66 IN, BMI 37.12 INDEX, BP 125/62 MM HG, HR 62 /MIN, RR 16 /MIN, TEMP 98.0 F, OXYGEN SAT % 93%, NA INITIALS SC 11:34. EXAMINATION GENERAL EXAMINATION: LUNGS:LUNG SOUNDS ARE CLEAR . HEART:HEART RATE REGULAR . MUSCULOSKELETAL:*, MUSCLE STRENGTH TESTING 5/5 BILATERAL UPPER EXTREMITIES. . CERVICAL+ FOR PAIN WITH PALPATION OF CERVICAL SPINE. + FOR PAIN WITH PALPATION OF CERVICAL PARASPINALS.SPECIFIC POINT TENDERNESS NOTED OVER RIGHT C4/5-/C5/6 CERVICAL FACETS WITH EXTENSION AND FACET LOADING. . DIAGNOSTIC TESTS REVIEWEDCERVICAL MRI -04/2016. 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 PROCEDURE CODES FA211 ESTABILISHED PATIENT [facility] CHARGE DISPOSITION & COMMUNICATION FOLLOW UP POST (REASON: RIGHT C4/5-C5/6 TFB) ELECTRONICALLY SIGNED BY LANA BRADFORD ON 05/04/2018 AT 03:53 PM EDT DISCLAIMER : THIS IS A VISIT SUMMARY EXTRACTED FROM THE [employer] CHART. IT IS NOT A COPY OF THE [employer] PROGRESS NOTE. GABRIEL
== END ==
LOC: M PAIN 11:00
PROVIDERS: ATTEND Nurse Practitioner Family
DX: M47.812 Spondylosis without myelopathy or radiculopathy, cervical region (principal); G89.29 Other chronic pain; F32.9 Major depressive disorder, single episode, unspecified; Z79.82 Long term (current) use of aspirin; Z79.899 Other long term (current) drug therapy; Z88.1 Allergy status to other antibiotic agents; Z88.8 Allergy status to other drugs, medicaments and biological substances; Z91.09 Other allergy status, other than to drugs and biological substances; Z86.79 Personal history of other diseases of the circulatory system

== ENCOUNTER → 2018-06-19 | Outpatient (CLI) | payer BC, MEDICARE ==
[~2018-06-19] MED LIST changes: -BUPIVACAINE HCL 0.25% 10 ML VIAL As Ordered; -BUPIVACAINE HCL 0.25% 30 ML VIAL As Ordered; +BUPIVACAINE HCL 0.25% 30 ML VIAL As Ordered ONE; +ISOVUE-M 300 61% 15ML VIAL (Q9967) As Ordered ONE; +LIDOCAINE 1% SDV INJ 30 ML VIAL As Ordered ONE; -TRIAMCINOLONE ACETONIDE SUSP 40 MG/ML VIAL (J3301) As Ordered; +TRIAMCINOLONE ACETONIDE SUSP 40 MG/ML VIAL (J3301) As Ordered ONE; -diazePAM 5 MG TAB As Ordered; +diazePAM 5 MG TAB As Ordered ONE; -oxyCODONE 5MG TAB As Ordered; +oxyCODONE 5MG TAB As Ordered ONE
--- NOTE | 2018-06-19 17:12 | REP ---
C-spine: Limited study two views. History: Cervical facet block injection for pain. 58 seconds of fluoroscopy time is reported. Findings: A sequence of two last image hold fluoroscopically obtained spot radiographs of the neck document needle position and contrast injection associated with cervical facet injection procedure. Electronically Signed by Nehemias Jones MD 06/20/2018 07:59 A
--- NOTE | 2018-07-05 23:40 | ECWPNPC ---
PATIENT NAME: CARMELA LALA : 1960 GENDER: FEMALE VISIT DATE: 06/19/2018 DISCHARGE DATE: 06/19/18 172 VISIT LOCKED DATE TIME: PHYSICIAN: CHICO REYNA MD RESOURCE: CHICO REYNA MD REASON FOR APPOINTMENT 1. THERAPEUTIC CERVICAL FACET BLOCK HISTORY OF PRESENT ILLNESS HISTORY OF PRESENT ILLNESS: PAIN THE PATIENT DESCRIBES THE PAIN... FALL RISK SCREENING: SCREENING :NO FALLS REPORTED IN THE LAST YEAR CURRENT MEDICATIONS TAKING CARVEDILOL 12.5 MG TABLET ORALLY TWICE DAILY, NOTES: 06/19/18699 TAKING LYRICA 100 MG CAPSULE 1 CAPSULE ORALLY THREE TIMES DAILY, NOTES: 06/19/18699 TAKING PRIMIDONE 250 MG TABLET ONE HALF ORALLY TWICE DAILY, NOTES: 06/19/18699 TAKING TORSEMIDE 20 MG TABLET 2 ORALLY ONCE DAILY, NOTES: 06/19/18699 TAKING ASPIRIN ADULT LOW DOSE 81 MG TABLET DELAYED RELEASE 1 TABLET ORALLY ONCE A DAY, NOTES: 06/19/18699 TAKING VITAMIN D3 - LIQUID 25 MGS ORALLY DAILY, NOTES: 06/19/18699 TAKING ASPERCREME 10 % LOTION EXTERNALLY , NOTES: NONE LATELY TAKING POTASSIUM BICARB-CITRIC ACID 10 MEQ TABLET EFFERVESCENT 1 TABLET ORALLY TWICE A DAY, NOTES: 06/19/18699 TAKING SPIRONOLACTONE 25 MG TABLET 1 TABLET ORALLY , NOTES: 06/19/18699 NOT-TAKING MIRALAX SUSPENSION 17 GRAMS ORALLY AT HOUR OF SLEEP NEEDED, NOTES: NONE RECENTLY NOT-TAKING ACETAMINOPHEN 325 MG TABLET 1 TABLET NEEDED ORALLY EVERY 4 HRS, NOTES: NONE RECENYLY MEDICATION LIST REVIEWED AND RECONCILED WITH THE PATIENT PAST MEDICAL HISTORY BLADDER WALL THICKENING BLOOD CLOT ON RIGHT OVARY LOW BACK PAIN CARPAL TUNNEL LEFT AND LEFT ELBOW PAIN AORTIC STENOSIS AND HEART MURMUR BICUSPID, AORTIC VALVE LOW POTASSIUM NEW DX ODF DEPPRESSION ALLERGIES NEOMYCIN SULFATE: RASH - ALLERGY ADHESIVE TAPE: RASH - ALLERGY BACITRACIN: RASH - ALLERGY FLOURACINE EYE DROPS: BURNING,ITCHY AND SWOLLEN EYES - ALLERGY SURGICAL HISTORY CARPAL TUNNEL ON ELBOW LEFT 02/2015 VAGINAL HYSTER 12/2012 KNEE ARTHROSCOPY-LEFT 09/2007 ACOUSTIC NEUROMA 08/1995 ENDOMETRIOSIS LAPROSCOPY 10/1991 LEFT EAR OPERATION 12/1989 GALL BLADDER 01/1985 OPEN ZAIDA FUNDOPLICATION 01/01/2017 APPENDECTOMY/ CYST REMOVED RIGHT OVARY 1975 LEFT CARPEL TUNNEL ELBOW AND HAND 11208 FAMILY HISTORY FATHER: , DIAGNOSED WITH CANCER, HYPERTENSION, HEART DISEASE MOTHER: , DIABETES, HEART DISEASE, STROKE 2DAUGHTER(S) - HEALTHY. DAD-PROSTATE AND LUNG CADAUGHTER - BIPOLARDAUGHTER - HIGH CALCIUMBROGTHER DIALYSIS, IDDM. SOCIAL HISTORY GENERAL: TOBACCO USE ARE YOU A:FORMER SMOKER OTHERS AT HOME: SPOUSE. DIET: REGULAR. LANGUAGE LANGUAGES SPOKEN:THAI DOMESTIC VIOLENCE DO YOU FEEL SAFE IN YOUR ENVIRONMENT?YES RECREATIONAL DRUG USE DRUG USE? NO. EXERCISE: STRECHES IN THE MORNING. LEARNING BARRIERS / SPECIAL NEEDS BARRIERS TO LEARNING?NO HEARING IMPAIRED?YES BILATERAL HEARING AIDS :HEARING AIDES VISION IMPAIRED?YES :CORRECTIVE LENSES COGNITIVELY IMPAIRED?NO READINESS TO LEARN?YES LEARNING PREFERENCES?NO LEARNING CAPABILITIES PRESENT?YES EMOTIONAL BARRIERS?NO SPECIAL DEVICES?NO GAGE MAKER NEEDED?NO PAIN CLINIC PFS, CLERGY, PUBLIC HEALTH REFERRALS PFS REFERRAL NEEDED?NO CLERGY REFERRAL NEEDED?NO PUBLIC HEALTH REFERRAL NEEDED?NO WAS THE PROVIDER NOTIFIED OF ANY PERTINENT INFO? N/A HAS THE PATIENT BEEN EDUCATED REGARDING HIS/HER PLAN OF CARE?YES HAS THE PATIENT BEEN EDUCATED REGARDING PAIN, THE RISK FOR PAIN, THE IMPORTANCE OF EFFECTIVE PAIN MANAGEMENT, AND THE PAIN ASSESSMENT PROCESS?YES CAFFEINE CAFFEINE USE? YES , HOW OFTEN AND HOW MUCH? 2 CUPS PER DAY. ADVANCE DIRECTIVE ADVANCE DIRECTIVE DISCUSSED WITH PATIENT:YES HCP--,JG [phone](H) [id number] RELIGIOUS MARITAL STATUS: . FEMALE 6 MONTH RISK ASSESSMENT FOR STD SPOUSE. ALCOHOL SCREENING DID YOU HAVE A DRINK CONTAINING ALCOHOL IN THE PAST YEAR?YES HOW OFTEN DID YOU HAVE A DRINK CONTAINING ALCOHOL IN THE PAST YEAR?MONTHLY OR LESS (1 POINT) HOW MANY DRINKS DID YOU HAVE ON A TYPICAL DAY WHEN YOU WERE DRINKING IN THE PAST YEAR?1 OR 2 (0 POINTS) HOW OFTEN DID YOU HAVE SIX OR MORE DRINKS ON ONE OCCASION IN THE PAST YEAR?NEVER (0 POINTS) POINTS1 INTERPRETATIONNEGATIVE OCCUPATION: DISABLED. 11/14/17 REVIEWED WITH PT. HENDRIX WITH PATIENT 11/22/17 1145 JS. HOSPITALIZATION/MAJOR DIAGNOSTIC PROCEDURE CHESTPAIN R/O [place] 2013 SURGERIES REVIEW OF SYSTEMS REVIEWED BY: PROVIDER: . CONSTITUTIONAL: ANY CHANGE IN YOUR MEDICAL CONDITION? NO . CHILLS NO . FEVER NO . INFECTION: DO YOU HAVE NEW INFECTIONS? NO . DO YOU HAVE HISTORY OF MRSA? NO . MUSCULOSKELETAL: ANY NEW PATTERNS OF PAIN OR NUMBNESS? NO . GASTROENTEROLOGY: ANY NEW CHANGE IN BOWEL CONTROL? NO . GENITOURINARY: ANY NEW CHANGE IN BLADDER CONTROL? NO . IS THERE A CHANCE YOU COULD BE ? NO . HEMATOLOGY/LYMPH: DO YOU TAKE ANY BLOOD THINNERS? (FOR EXAMPLE- COUMADIN, PLAVIX, AGGRENOX, PLATEL, PRADAXA, OR XARELTO) NO . WHEN WAS YOUR LAST DOSE? DATE: TIME: . NEUROLOGY: HAVE YOU FALLEN IN THE PAST 12 MONTHS? NO . ANY NEW EXTREMITY NUMBNESS OR WEAKNESS? NO . CARDIOLOGY: DO YOU HAVE A PACEMAKER OR DEFIBRILLATOR? NO . RESPIRATORY: HAVE YOU BEEN SICK IN THE PAST WEEK? NO . FEVER NO . FLU LIKE SYMPTOMS? NO . COUGH NO . INTEGUMENTARY: DO YOU HAVE ANY RASHES OR OPEN SORES? NO . ALLERGIC/IMMUNO: ARE YOU ALLERGIC TO IV DYE? NO . ANY NEW ALLERGIES? NO . PSYCHIATRIC: DO YOU HAVE THOUGHTS OF HURTING YOURSELF OR SOMEONE ELSE? NO . ARE YOU ABUSED, NEGLECTED, OR IN AN UNSAFE ENVIRONMENT? NO . ENDOCRINOLOGY: ARE YOU DIABETIC? NO . OTHER: DO YOU NEED ANY PRESCRIPTIONS? NO . IF YES, PLEASE LIST: ____ . ANY NEW PROBLEMS WITH YOUR MEDICATIONS? NO . WHEN DID YOU LAST EAT? 06/19/18 0700 . WHEN DID YOU LAST DRINK? 06/19/18 1330 . WHAT DID YOU LAST DRINK? WATER . NAME OF PERSON DRIVING YOU HOME? JG . DO YOU HAVE ANY OTHER QUESTIONS OR CONCERNS YES, NEW MED SPIRONOLATONE 25 MG . VITAL SIGNS WT 224.2 LBS, HT 66 IN, BMI 36.18 INDEX, BP 121/66 MM HG, HR 60 /MIN, RR 16 /MIN, TEMP 97.9 F, OXYGEN SAT % 97%, NA INITIALS SC 13:58, REVIEWED BY: EM. 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 CHICO REYNA RN CLINICAL REVIEW NONE ANESTHESIA LOCAL PRE PROCEDURE NOTE THE PATIENT HAS HISTORY OF CHRONIC CERVICAL PAIN. I EVALUATE THE PATIENT AND REVIEWED THE CHART. I WENT OVER THE RISKS, ALTERNATIVES, AND BENEFITS ASSOCIATED WITH THIS PROCEDURE. THE PATIENT WOULD LIKE TO PROCEED AND GIVE CONSENT TO PERFORMED THE PROCEDURE. THE PATIENT DENIES UNEXPLAINABLE WEIGHT LOSS, FEVER, CHILLS, OR NEW CHANGES IN URINARY OR BOWEL CONTROL. DESCRIPTION OF PROCEDURE THE PATIENT WAS BROUGHT TO THE PROCEDURE ROOM AND PLACED IN THE PRONE POSITION. THE CERVICOTHORACIC AREA WAS CLEANED WITH CHLORAPREP SOLUTION AND DRAPED ASEPTICALLY. THE PROCEDURE WAS DONE UNDER STERILE CONDITIONS. I CHECKED LATERALITY AND THE LEVEL WHERE THE PROCEDURE WAS GOING TO BE PERFORMED WITH THE PATIENT AND THE SUPPORTING STAFF AT THE MOMENT OF THE TIME OUT IN THE PROCEDURE ROOM. UNDER FLUOROSCOPIC GUIDANCE, TARGET POINT WAS SELECTED AT THE RIGHT C2-C3, RIGHT C3-C4, AND RIGHT C4-C5 CERVICAL FACET JOINT. TARGET POINTS WERE SELECTED AFTER LATERAL ROTATION AND TILT OF THE MAGNIFIER OF THE C-ARM. LIDOCAINE 0.5% WAS USED TO NUMB THE SKIN AND THE SUBCUTANEOUS TISSUE BELOW IT. SPINAL NEEDLES, 22-GAUGE, WERE ADVANCED UNDER FLUOROSCOPIC GUIDANCE AND FOLLOWING PATIENT FEEDBACK UNTIL THE TARGETS WERE TOUCHED. THE POSITION OF THE NEEDLES WAS VERIFIED WITH AP AND LATERAL VIEWS. AFTER PROPER POSITION OF THE NEEDLES WAS ACHIEVED, ISOVUE M DYE 30, 0.1 ML WAS INJECTED SHOWING SPREAD OF THE DYE. THEN A SOLUTION OF 0.9 ML OF BUPIVACAINE 0.125% AND KENALOG 10 MG WAS INJECTED AT EACH SITE. THERE WAS NO EVIDENCE OF BLOOD, PARESTHESIA OR CEREBROSPINAL FLUID DURING THE PROCEDURE. THE PATIENT WAS SENT TO THE RECOVERY ROOM. THE PATIENT WAS MOVING THE EXTREMITIES AND DOING WELL. THERE WAS NO COMPLICATION DURING THE PROCEDURE. FLUOROSCOPY TIME WAS 58 SECONDS POST PROCEDURE NOTE THE PATIENT WILL BE SEEN IN A FOLLOW UP IN THE NEXT FEW WEEKS. INSTRUCTIONS WERE GIVEN, QUESTIONS WERE ANSWERED, AND THE PATIENT EXPRESSED UNDERSTANDING AND AGREES WITH THE PLAN. I, HASEEB BERNAL, DOCUMENTED THE ABOVE INFORMATION ACTING A SCRIBE FOR DR. REYNA. I HAVE REVIEWED THE ABOVE DOCUMENT, WRITTEN BY HASEEB BERNAL SCRIBEdgardo AND I VERIFY THAT IT IS ACCURATE. PROCEDURE CODES 6045F RADXPS IN END [id number] PXD [id number] INJ PARAVERT F JNT C/T 1 LEV, MODIFIERS: [place] [address]85 INJ PARAVERT F JNT C/T 2 LEV, [place]IFI[place]: [place] [address] INJ PARAVERT F JNT C/T 3 LEV, MODIFIERS: RT DISPOSITION & COMMUNICATION FOLLOW UP 3 WEEKS ELECTRONICALLY SIGNED BY CHICO REYNA MD, MD ON 07/05/2018 AT 04:55 PM EDT DISCLAIMER : THIS IS A VISIT SUMMARY EXTRACTED FROM THE [employer] CHART. IT IS NOT A COPY OF THE [employer] PROGRESS NOTE. MTDD
== END ==
LOC: M PAIN 13:45
PROVIDERS: ATTEND Anesthesiology
DX: G89.29 Other chronic pain (principal); M47.812 Spondylosis without myelopathy or radiculopathy, cervical region; F32.9 Major depressive disorder, single episode, unspecified; Z98.2 Presence of cerebrospinal fluid drainage device; Z79.899 Other long term (current) drug therapy; Z88.1 Allergy status to other antibiotic agents; Z88.2 Allergy status to sulfonamides; Z88.8 Allergy status to other drugs, medicaments and biological substances; Z91.09 Other allergy status, other than to drugs and biological substances; Z86.79 Personal history of other diseases of the circulatory system; Z87.891 Personal history of nicotine dependence
CPT/HCPCS: 64490; 64491; 64492; J3301; Q9967

== ENCOUNTER → 2018-06-26 | Outpatient (CLI) | payer BC, MEDICARE ==
--- NOTE | 2018-07-16 01:45 | ECWPNPC ---
PATIENT NAME: CARMELA LALA : 1960 GENDER: FEMALE VISIT DATE: 06/26/2018 DISCHARGE DATE: 06/26/18 1457 VISIT LOCKED DATE TIME: PHYSICIAN: NADINE MEJIA RESOURCE: NADINE MEJIA REASON FOR APPOINTMENT 1. POST PROCEDURE HISTORY OF PRESENT ILLNESS HISTORY OF PRESENT ILLNESS: HERE FOR POST PROCEDURE F/U.HAD BILAT.CERVICAL FACET THERAPEUTIC BLOCK ON 06/19/18.REPORTING SIGNIFICANT REDUCTION IN PAIN POST PROCEDURE THAT CONTINUES TODAY.CHIEF AREA OF PAIN IS THORACIC AND LUMBAR.RATING PAIN VAS 9/10.PAIN RADIATES INTO RIGHT ANTERIOR LATERAL THIGH. PAIN THE PATIENT DESCRIBES THE PAIN... FALL RISK SCREENING: SCREENING :NO FALLS REPORTED IN THE LAST YEAR CURRENT MEDICATIONS TAKING CARVEDILOL 12.5 MG TABLET ORALLY TWICE DAILY, NOTES: 06/19/18699 TAKING LYRICA 100 MG CAPSULE 1 CAPSULE ORALLY THREE TIMES DAILY, NOTES: 06/19/18699 TAKING PRIMIDONE 250 MG TABLET ONE TABLET IN AM, 1/2 TABLET IN EVENING ORALLY , NOTES: 06/19/18699 TAKING TORSEMIDE 20 MG TABLET 2 ORALLY ONCE DAILY, NOTES: 06/19/18699 TAKING ASPIRIN ADULT LOW DOSE 81 MG TABLET DELAYED RELEASE 1 TABLET ORALLY ONCE A DAY, NOTES: 06/19/18699 TAKING VITAMIN D3 - LIQUID 25 MGS ORALLY DAILY, NOTES: 06/19/18699 TAKING ASPERCREME 10 % LOTION EXTERNALLY , NOTES: NONE LATELY TAKING POTASSIUM BICARB-CITRIC ACID 10 MEQ TABLET EFFERVESCENT 1 TABLET ORALLY TWICE A DAY, NOTES: 06/19/18699 TAKING SPIRONOLACTONE 25 MG TABLET 1 TABLET ORALLY , NOTES: 06/19/18699 TAKING ACETAMINOPHEN 325 MG TABLET 1 TABLET NEEDED ORALLY EVERY 4 HRS, NOTES: NONE RECENYLY NOT-TAKING MIRALAX SUSPENSION 17 GRAMS ORALLY AT HOUR OF SLEEP NEEDED, NOTES: NONE RECENTLY MEDICATION LIST REVIEWED AND RECONCILED WITH THE PATIENT PAST MEDICAL HISTORY BLADDER WALL THICKENING BLOOD CLOT ON RIGHT OVARY LOW BACK PAIN CARPAL TUNNEL LEFT AND LEFT ELBOW PAIN AORTIC STENOSIS AND HEART MURMUR BICUSPID, AORTIC VALVE LOW POTASSIUM NEW DX ODF DEPPRESSION ALLERGIES NEOMYCIN SULFATE: RASH - ALLERGY ADHESIVE TAPE: RASH - ALLERGY BACITRACIN: RASH - ALLERGY FLOURACINE EYE DROPS: BURNING,ITCHY AND SWOLLEN EYES - ALLERGY SURGICAL HISTORY CARPAL TUNNEL ON ELBOW LEFT 02/2015 VAGINAL HYSTER 12/2012 KNEE ARTHROSCOPY-LEFT 09/2007 ACOUSTIC NEUROMA 08/1995 ENDOMETRIOSIS LAPROSCOPY 10/1991 LEFT EAR OPERATION 12/1989 GALL BLADDER 01/1985 OPEN ZAIDA FUNDOPLICATION 01/01/2017 APPENDECTOMY/ CYST REMOVED RIGHT OVARY 1975 LEFT CARPEL TUNNEL ELBOW AND HAND 11 FAMILY HISTORY FATHER: , DIAGNOSED WITH HYPERTENSION, HEART DISEASE, CANCER MOTHER: , HEART DISEASE, STROKE, DIABETES 2DAUGHTER(S) - HEALTHY. DAD-PROSTATE AND LUNG CADAUGHTER - BIPOLARDAUGHTER - HIGH CALCIUMBROGTHER DIALYSIS, IDDM. SOCIAL HISTORY GENERAL: TOBACCO USE ARE YOU A:FORMER SMOKER OTHERS AT HOME: SPOUSE. DIET: REGULAR. LANGUAGE LANGUAGES SPOKEN:LITHUANIAN DOMESTIC VIOLENCE DO YOU FEEL SAFE IN YOUR ENVIRONMENT?YES RECREATIONAL DRUG USE DRUG USE? NO. EXERCISE: STRECHES IN THE MORNING. 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 N/A HAS THE PATIENT BEEN EDUCATED REGARDING HIS/HER PLAN OF CARE?YES HAS THE PATIENT BEEN EDUCATED REGARDING PAIN, THE RISK FOR PAIN, THE IMPORTANCE OF EFFECTIVE PAIN MANAGEMENT, AND THE PAIN ASSESSMENT PROCESS?YES CAFFEINE CAFFEINE USE? YES , HOW OFTEN AND HOW MUCH? 2 CUPS PER DAY. ADVANCE DIRECTIVE ADVANCE DIRECTIVE DISCUSSED WITH PATIENT:YES HCP--,JG [phone](H) ANGLICAN [id number] JAIN MARITAL STATUS: . FEMALE 6 MONTH RISK ASSESSMENT FOR STD SPOUSE. ALCOHOL SCREENING DID YOU HAVE A DRINK CONTAINING ALCOHOL IN THE PAST YEAR?YES HOW OFTEN DID YOU HAVE A DRINK CONTAINING ALCOHOL IN THE PAST YEAR?MONTHLY OR LESS (1 POINT) HOW MANY DRINKS DID YOU HAVE ON A TYPICAL DAY WHEN YOU WERE DRINKING IN THE PAST YEAR?1 OR 2 (0 POINTS) HOW OFTEN DID YOU HAVE SIX OR MORE DRINKS ON ONE OCCASION IN THE PAST YEAR?NEVER (0 POINTS) POINTS1 INTERPRETATIONNEGATIVE OCCUPATION: DISABLED. 11/14/17 REVIEWED WITH PT. ADREVIEWED WITH PATIENT 11/22/17 1145 JSREVIEWED WITH PATIENT 06/26/18 1415 LAS. HOSPITALIZATION/MAJOR DIAGNOSTIC PROCEDURE CHESTPAIN R/O RI 2013 SURGERIES REVIEW OF SYSTEMS REVIEWED BY: PROVIDER: NADINE SCHWARTZ . CONSTITUTIONAL: ANY CHANGE IN YOUR MEDICAL CONDITION? NO . CHILLS NO . FEVER NO . INFECTION: DO YOU HAVE NEW INFECTIONS? NO . DO YOU HAVE HISTORY OF MRSA? NO . MUSCULOSKELETAL: ANY NEW PATTERNS OF PAIN OR NUMBNESS? PT REPORTS THE PAIN IN HER NECK IS MUCH BETTER - PRIOR TO INJECTION, IT WAS AN 8, NOW REPORTED A 2. PT ALSO REPORTS PAIN IS WORSE IN LOW BACK . GASTROENTEROLOGY: ANY NEW CHANGE IN BOWEL CONTROL? NO . GENITOURINARY: ANY NEW CHANGE IN BLADDER CONTROL? NO . IS THERE A CHANCE YOU COULD BE ? NO . HEMATOLOGY/LYMPH: DO YOU TAKE ANY BLOOD THINNERS? (FOR EXAMPLE- COUMADIN, PLAVIX, AGGRENOX, PLATEL, PRADAXA, OR XARELTO) NO . WHEN WAS YOUR LAST DOSE? DATE: TIME: . NEUROLOGY: HAVE YOU FALLEN IN THE PAST 12 MONTHS? NO . ANY NEW EXTREMITY NUMBNESS OR WEAKNESS? YES PT REPORTS THAT AFTER PROLONGED STANDING (WHEN SHE STANDS TO DO DISHES OR COOK, FOR EXAMPLE) THE LATERAL PORTION OF HER RIGHT THIGH GOES NUMB . CARDIOLOGY: DO YOU HAVE A PACEMAKER OR DEFIBRILLATOR? NO . RESPIRATORY: HAVE YOU BEEN SICK IN THE PAST WEEK? NO . FEVER NO . FLU LIKE SYMPTOMS? NO . COUGH NO . INTEGUMENTARY: DO YOU HAVE ANY RASHES OR OPEN SORES? NO . ALLERGIC/IMMUNO: ARE YOU ALLERGIC TO IV DYE? NO . ANY NEW ALLERGIES? NO . PSYCHIATRIC: DO YOU HAVE THOUGHTS OF HURTING YOURSELF OR SOMEONE ELSE? NO . ARE YOU ABUSED, NEGLECTED, OR IN AN UNSAFE ENVIRONMENT? NO . ENDOCRINOLOGY: ARE YOU DIABETIC? NO . OTHER: DO YOU NEED ANY PRESCRIPTIONS? NO . IF YES, PLEASE LIST: ____ . ANY NEW PROBLEMS WITH YOUR MEDICATIONS? NO . WHEN DID YOU LAST EAT? ____ . WHEN DID YOU LAST DRINK? ____ . WHAT DID YOU LAST DRINK? ____ . NAME OF PERSON DRIVING YOU HOME? ____ . DO YOU HAVE ANY OTHER QUESTIONS OR CONCERNS NO . VITAL SIGNS WT 225 LBS, HT 66 IN, BMI 36.31 INDEX, BP 146/71 MM HG, HR 69 /MIN, RR 16 /MIN, TEMP 98.7 F, OXYGEN SAT % 95%, NA INITIALS SC 14:20. EXAMINATION GENERAL EXAMINATION: GENERAL APPEARANCE: AWAKE,ALERT ,PLEAASANT . PSYCH AFFECT NORMAL . LUNGS: LUNG NGUYEN ARE CLEAR TO AUSCULTATION BILATERALLY. GOOD MOVEMENT OF AIR . HEART: S1, S2 IN A REGULAR RATE AND RHYTHM. NO SIGNIFICANT MURMURS, RUBS OR GALLOPS NOTED . MUSCULOSKELETAL: WEAK OVER RIGHT LEG. LUMBAR SACRAL SPINE PALPATION: + FOR PAIN OVER L/S SPINE. + FOR PAIN OVER L/S PARASPINALS. NEUROLOGIC EXAM: NORMAL SENSATION LIGHT TOUCH BILAT. LOWER EXTREMITIES. DIAGNOSTIC TESTS REVIEWED MRI L/S SPINE-11/26/14. ASSESSMENTS LOW BACK PAIN - M54.5 (PRIMARY) LUMBAR RADICULOPATHY - M54.16 TREATMENT LOW BACK PAIN NOTES: L4/5 LESI. PREVENTIVE MEDICINE PAIN CLINIC TEACHING: PROCEDURE TEACHING LUMBAR EPIDURAL STEROID INJECTION PROCEDURE REVIEWED, PRE PROCEDURE INSTRUCTIONS GIVEN. . PROCEDURE CODES FA211 ESTABILISHED PATIENT NEW [facility] CHARGE DISPOSITION & COMMUNICATION FOLLOW UP POST (REASON: L4/5 LESI) ELECTRONICALLY SIGNED BY LANA BRADFORD ON 07/15/2018 AT 12:57 PM EDT DISCLAIMER : THIS IS A VISIT SUMMARY EXTRACTED FROM THE [facility] CHART. IT IS NOT A COPY OF THE [facility] PROGRESS NOTE. GABRIEL
== END ==
LOC: M PAIN 14:15
PROVIDERS: ATTEND Nurse Practitioner Family
DX: M54.16 Radiculopathy, lumbar region (principal); F32.9 Major depressive disorder, single episode, unspecified; Z79.82 Long term (current) use of aspirin; Z79.899 Other long term (current) drug therapy; Z88.1 Allergy status to other antibiotic agents; Z88.8 Allergy status to other drugs, medicaments and biological substances; Z91.09 Other allergy status, other than to drugs and biological substances

== ENCOUNTER → 2018-08-07 | Outpatient (CLI) | payer BC, MEDICARE ==
[~2018-08-07] MED LIST changes: -BUPIVACAINE HCL 0.25% 30 ML VIAL As Ordered ONE; -TRIAMCINOLONE ACETONIDE SUSP 40 MG/ML VIAL (J3301) As Ordered ONE; +methylPREDNISolone SUSP 40 MG/ML (DEPO-medrol) VIAL (J1030) As Ordered ONE
--- NOTE | 2018-08-07 16:30 | REP ---
Partial lumbar spine series: Two views . History: Injection procedure for pain. 23 seconds of fluoroscopy time is reported. Findings: A sequence of two fluoroscopically obtained last image hold procedural spot radiographs of the lumbar spine document needle position and contrast injection associated with injection procedure. Electronically Signed by Nehemias Jones MD 08/07/2018 04:21 P
--- NOTE | 2018-08-14 00:45 | ECWPNPC ---
PATIENT NAME: CARMELA LALA : 1960 GENDER: FEMALE VISIT DATE: 08/07/2018 DISCHARGE DATE: 08/07/18 1520 VISIT LOCKED DATE TIME: PHYSICIAN: CHICO REYNA MD RESOURCE: CHICO REYNA MD REASON FOR APPOINTMENT 1. L4/5 LESI HISTORY OF PRESENT ILLNESS HISTORY OF PRESENT ILLNESS: PAIN THE PATIENT DESCRIBES THE PAIN... FALL RISK SCREENING: SCREENING :NO FALLS REPORTED IN THE LAST YEAR CURRENT MEDICATIONS TAKING CARVEDILOL 12.5 MG TABLET ORALLY TWICE DAILY, NOTES: 08/07/18629 TAKING LYRICA 100 MG CAPSULE 1 CAPSULE ORALLY THREE TIMES DAILY, NOTES: 08/07/18629 TAKING PRIMIDONE 250 MG TABLET ONE TABLET IN AM, 1/2 TABLET IN EVENING ORALLY , NOTES: 08/07/18629 TAKING TORSEMIDE 20 MG TABLET 2 ORALLY ONCE DAILY, NOTES: 08/07/18629 TAKING ASPIRIN ADULT LOW DOSE 81 MG TABLET DELAYED RELEASE 1 TABLET ORALLY ONCE A DAY, NOTES: 08/07/18629 TAKING VITAMIN D3 - LIQUID 25 MGS ORALLY DAILY, NOTES: 08/07/18629 TAKING ASPERCREME 10 % LOTION EXTERNALLY , NOTES: NONE LATELY TAKING POTASSIUM BICARB-CITRIC ACID 10 MEQ TABLET EFFERVESCENT 1 TABLET ORALLY TWICE A DAY, NOTES: 08/07/18629 TAKING SPIRONOLACTONE 25 MG TABLET 1 TABLET ORALLY , NOTES: 08/07/18629 TAKING ACETAMINOPHEN 325 MG TABLET 1 TABLET NEEDED ORALLY EVERY 4 HRS, NOTES: NONE RECENTLY TAKING MAGNESIUM 300 MG CAPSULE 1 CAPSULE WITH A MEAL ORALLY ONCE A DAY, NOTES: 08/07/18629 NOT-TAKING MIRALAX SUSPENSION 17 GRAMS ORALLY AT HOUR OF SLEEP NEEDED, NOTES: NONE RECENTLY MEDICATION LIST REVIEWED AND RECONCILED WITH THE PATIENT PAST MEDICAL HISTORY BLADDER WALL THICKENING BLOOD CLOT ON RIGHT OVARY LOW BACK PAIN CARPAL TUNNEL LEFT AND LEFT ELBOW PAIN AORTIC STENOSIS AND HEART MURMUR BICUSPID, AORTIC VALVE LOW POTASSIUM NEW DX ODF DEPPRESSION ALLERGIES NEOMYCIN SULFATE: RASH - ALLERGY ADHESIVE TAPE: RASH - ALLERGY BACITRACIN: RASH - ALLERGY FLOURACINE EYE DROPS: BURNING,ITCHY AND SWOLLEN EYES - ALLERGY SURGICAL HISTORY CARPAL TUNNEL ON ELBOW LEFT 02/2015 VAGINAL HYSTER 12/2012 KNEE ARTHROSCOPY-LEFT 09/2007 ACOUSTIC NEUROMA 08/1995 ENDOMETRIOSIS LAPROSCOPY 10/1991 LEFT EAR OPERATION 12/1989 GALL BLADDER 01/1985 OPEN ZAIDA FUNDOPLICATION 01/01/2017 APPENDECTOMY/ CYST REMOVED RIGHT OVARY 1974 LEFT CARPEL TUNNEL ELBOW AND HAND 11 FAMILY HISTORY FATHER: , DIAGNOSED WITH HEART DISEASE, CANCER, HYPERTENSION MOTHER: , STROKE, DIABETES, HEART DISEASE 2DAUGHTER(S) - HEALTHY. DAD-PROSTATE AND LUNG CADAUGHTER - BIPOLARDAUGHTER - HIGH CALCIUMBROGTHER DIALYSIS, IDDM. SOCIAL HISTORY GENERAL: TOBACCO USE ARE YOU A:FORMER SMOKER OTHERS AT HOME: SPOUSE. DIET: REGULAR. LANGUAGE LANGUAGES SPOKEN:KYRGYZ DOMESTIC VIOLENCE DO YOU FEEL SAFE IN YOUR ENVIRONMENT?YES RECREATIONAL DRUG USE DRUG USE? NO. EXERCISE: STRECHES IN THE MORNING. 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 N/A HAS THE PATIENT BEEN EDUCATED REGARDING HIS/HER PLAN OF CARE?YES HAS THE PATIENT BEEN EDUCATED REGARDING PAIN, THE RISK FOR PAIN, THE IMPORTANCE OF EFFECTIVE PAIN MANAGEMENT, AND THE PAIN ASSESSMENT PROCESS?YES LATEX QUESTIONNAIRE LATEX ALLERGY : HAVE YOU EVER DEVELOPED ANY TYPE OF REACTION AFTER HANDLING LATEX PRODUCTS SUCH RUBBER GLOVES, CONDOMS, DIAPHRAGMS, BALLOONS, SOCKS, OR UNDERWEAR?NO LATEX ALLERGY : HAVE YOU EVER DEVELOPED ANY TYPE OF REACTION DURING OR AFTER DENTAL APPOINTMENT, VAGINAL/RECTAL EXAMINATION, SURGICAL PROCEDURE, OR ANY OTHER EXPOSURE?NO LATEX RISK : HAVE YOU EVER HAD ANY DIFFICULTY BREATHING OR HIVES AFTER EATING OR HANDLING ANY FRUITS, OR VEGETABLES; SUCH KIWI, BANANAS, STONE FRUITS, OR CHESTNUTSNO LATEX RISK : DO YOU HAVE A PREVIOUS PERSONAL HISTORY OF MORE THAN NINE SURGERIES, SPINA BIFIDA, OR REPEATED CATHERTIZATIONS? NO LATEX RISK : ARE YOU FREQUENTLY EXPOSED TO LATEX PRODUCTS IN YOUR OCCUPATION?NO DATE ASKED : 08/07/2018 CAFFEINE CAFFEINE USE? YES , HOW OFTEN AND HOW MUCH? 2 CUPS PER DAY. ADVANCE DIRECTIVE ADVANCE DIRECTIVE DISCUSSED WITH PATIENT:YES HCP--,JG [phone](H) WORSHIP [id number] ANABAPTISM MARITAL STATUS: . FEMALE 6 MONTH RISK ASSESSMENT FOR STD SPOUSE. ALCOHOL SCREENING DID YOU HAVE A DRINK CONTAINING ALCOHOL IN THE PAST YEAR?YES HOW OFTEN DID YOU HAVE A DRINK CONTAINING ALCOHOL IN THE PAST YEAR?MONTHLY OR LESS (1 POINT) HOW MANY DRINKS DID YOU HAVE ON A TYPICAL DAY WHEN YOU WERE DRINKING IN THE PAST YEAR?1 OR 2 (0 POINTS) HOW OFTEN DID YOU HAVE SIX OR MORE DRINKS ON ONE OCCASION IN THE PAST YEAR?NEVER (0 POINTS) POINTS1 INTERPRETATIONNEGATIVE OCCUPATION: DISABLED. 11/14/17 REVIEWED WITH PT. ADREVIEWED WITH PATIENT 11/22/17 1145 JSREVIEWED WITH PATIENT 06/26/18 1415 LASREVIEWED WITH PATIENT 08/07/18 1405 LAS. HOSPITALIZATION/MAJOR DIAGNOSTIC PROCEDURE CHESTPAIN R/O SD 2013 SURGERIES REVIEW OF SYSTEMS REVIEWED BY: PROVIDER: . CONSTITUTIONAL: ANY CHANGE IN YOUR MEDICAL CONDITION? NO . CHILLS NO . FEVER NO . INFECTION: DO YOU HAVE NEW INFECTIONS? NO . DO YOU HAVE HISTORY OF MRSA? NO . MUSCULOSKELETAL: ANY NEW PATTERNS OF PAIN OR NUMBNESS? YES PT REPORTS SHE IS HAVING SOME NUMBNESS ON HER RIGHT BUTTOCKS/UPPER THIGH AFTER PROLONGED STANDING, FOR APPROXIMATELY THE LAST SIX MONTHS . GASTROENTEROLOGY: ANY NEW CHANGE IN BOWEL CONTROL? NO . GENITOURINARY: ANY NEW CHANGE IN BLADDER CONTROL? NO . IS THERE A CHANCE YOU COULD BE ? NO . HEMATOLOGY/LYMPH: DO YOU TAKE ANY BLOOD THINNERS? (FOR EXAMPLE- COUMADIN, PLAVIX, AGGRENOX, PLATEL, PRADAXA, OR XARELTO) NO . WHEN WAS YOUR LAST DOSE? DATE: TIME: . NEUROLOGY: HAVE YOU FALLEN IN THE PAST 12 MONTHS? NO . ANY NEW EXTREMITY NUMBNESS OR WEAKNESS? NO . CARDIOLOGY: DO YOU HAVE A PACEMAKER OR DEFIBRILLATOR? NO . RESPIRATORY: HAVE YOU BEEN SICK IN THE PAST WEEK? NO . FEVER NO . FLU LIKE SYMPTOMS? NO . COUGH NO . INTEGUMENTARY: DO YOU HAVE ANY RASHES OR OPEN SORES? NO . ALLERGIC/IMMUNO: ARE YOU ALLERGIC TO IV DYE? NO . ANY NEW ALLERGIES? NO . PSYCHIATRIC: DO YOU HAVE THOUGHTS OF HURTING YOURSELF OR SOMEONE ELSE? NO . ARE YOU ABUSED, NEGLECTED, OR IN AN UNSAFE ENVIRONMENT? NO . ENDOCRINOLOGY: ARE YOU DIABETIC? NO . OTHER: DO YOU NEED ANY PRESCRIPTIONS? NO . IF YES, PLEASE LIST: ____ . ANY NEW PROBLEMS WITH YOUR MEDICATIONS? NO . WHEN DID YOU LAST EAT? ____08/07/18 0630 . WHEN DID YOU LAST DRINK? ____08/07/18 1200 . WHAT DID YOU LAST DRINK? ____WATER . NAME OF PERSON DRIVING YOU HOME? ____HUSBAND JG . DO YOU HAVE ANY OTHER QUESTIONS OR CONCERNS NO . VITAL SIGNS WT 224 LBS, HT 66 IN, BMI 36.15 INDEX, BP 131/58 MM HG, HR 60 /MIN, RR 16 /MIN, TEMP 98.6 F, OXYGEN SAT % 98%, SAFE IN ENV? (Y/N) YES, NA INITIALS SC 13:49, REVIEWED BY: MERARI. ASSESSMENTS INTERVERTEBRAL DISC DISORDER WITH RADICULOPATHY OF LUMBAR REGION - M51.16 (PRIMARY) PROCEDURES PRE PROCEDURE DIAGNOSIS LUMBAR DISC DISORDER WITH RADICULOPATHY POST PROCEDURE DIAGNOSIS LUMBAR DISC DISORDER WITH RADICULOPATHY PROCEDURE LUMBAR EPIDURAL STEROID INJECTION UNDER FLUOROSCOPIC GUIDANCE SURGEON DR. CHICO REYNA MANAGER OF PHOTOGRAPHY NONE ANESTHESIA LOCAL PRE PROCEDURE NOTE THE PATIENT HAS A HISTORY OF CHRONIC LOW BACK PAIN. I EVALUATED THE PATIENT AND REVIEWED THE CHART. I WENT OVER THE RISKS, ALTERNATIVES, AND BENEFITS ASSOCIATED WITH THIS PROCEDURE. THE PATIENT WOULD LIKE TO PROCEED AND GIVES CONSENT TO PERFORM THE PROCEDURE. THE PATIENT DENIES UNEXPLAINABLE WEIGHT LOSS, FEVER, CHILLS, OR NEW CHANGES IN URINARY OR BOWEL CONTROL. DESCRIPTION OF PROCEDURE THE PATIENT WAS BROUGHT TO THE PROCEDURE ROOM AND PLACED IN THE PRONE POSITION. THE LUMBOSACRAL AREA WAS CLEANED WITH BETADINE SOLUTION AND DRAPED ASEPTICALLY. THE PROCEDURE WAS DONE UNDER STERILE CONDITIONS. I CHECKED LATERALITY AND THE LEVEL WHERE THE PROCEDURE WAS GOING TO BE PERFORMED WITH THE PATIENT AND THE SUPPORTING STAFF AT THE MOMENT OF THE TIME OUT IN THE PROCEDURE ROOM. UNDER FLUOROSCOPIC GUIDANCE, THE TARGET POINT WAS SELECTED AT THE INTERLAMINAR LEVEL OF L4-L5. LIDOCAINE WAS USED TO NUMB THE SKIN AND THE SUBCUTANEOUS TISSUE BELOW IT. EPIDURAL TUOHY NEEDLE, 17-GAUGE, WAS ADVANCED UNDER FLUOROSCOPIC GUIDANCE AND FOLLOWING PATIENT FEEDBACK UNTIL THE EPIDURAL SPACE WAS REACHED, 7 CM DEEP INTO THE SKIN BY THE LOSS OF RESISTANCE TECHNIQUE. ISOVUE M DYE 30%, 0.25 ML, WAS INJECTED SHOWING ADEQUATE SPREAD OF THE DYE. THEN, A SOLUTION OF 3 ML OF NORMAL SALINE WITH DEPO-MEDROL 60 MG WAS INJECTED SLOWLY FOLLOWING PATIENT FEEDBACK. THERE WAS NO EVIDENCE OF BLOOD, PARESTHESIA OR CEREBROSPINAL FLUID DURING THE PROCEDURE. THE PATIENT WAS SENT TO THE RECOVERY ROOM. THE PATIENT WAS MOVING THE EXTREMITIES AND DOING WELL. THERE WAS NO COMPLICATION DURING THE PROCEDURE. FLUOROSCOPY TIME WAS 23 SECONDS. POST PROCEDURE NOTE THE PATIENT WILL BE SEEN IN A FOLLOW UP IN THE NEXT FEW WEEKS. INSTRUCTIONS WERE GIVEN, QUESTIONS WERE ANSWERED, AND THE PATIENT EXPRESSED UNDERSTANDING AND AGREES WITH THE PLAN. I, FINESSE PHILLIPS, DOCUMENTED THE ABOVE INFORMATION ACTING A SCRIBE FOR DR. REYNA. I HAVE REVIEWED THE ABOVE DOCUMENT, WRITTEN BY FINESSE PHILLIPS SCRIBEdgardo AND I VERIFY THAT IT IS ACCURATE. DIAGNOSTIC IMAGING [facility] FLUORO GUIDE SPINE INJECTION (PAIN)[id number] PROCEDURE CODES 92452 LUMBAR/SACRAL W/ IMAGING 6045F RADXPS IN END [id number] PXD DISPOSITION & COMMUNICATION FOLLOW UP 2 WEEKS ELECTRONICALLY SIGNED BY CHICO REYNA MD, MD ON 08/13/2018 AT 01:26 PM EDT DISCLAIMER : THIS IS A VISIT SUMMARY EXTRACTED FROM THE [employer] CHART. IT IS NOT A COPY OF THE [employer] PROGRESS NOTE. MTDD
== END ==
LOC: M PAIN 14:00
PROVIDERS: ATTEND Anesthesiology
DX: M51.16 Intervertebral disc disorders with radiculopathy, lumbar region (principal); E87.6 Hypokalemia; I35.0 Nonrheumatic aortic (valve) stenosis; Z87.891 Personal history of nicotine dependence; Z79.899 Other long term (current) drug therapy; Z88.1 Allergy status to other antibiotic agents; Z88.8 Allergy status to other drugs, medicaments and biological substances; Z91.048 Other nonmedicinal substance allergy status
CPT/HCPCS: 62323; J1030; Q9967

== ENCOUNTER → 2018-08-20 | Outpatient (CLI) | payer BC, MEDICARE ==
--- NOTE | 2018-09-02 00:36 | ECWPNPC ---
PATIENT NAME: CARMELA LALA : 1960 GENDER: FEMALE VISIT DATE: 08/20/2018 DISCHARGE DATE: 08/20/18 1141 VISIT LOCKED DATE TIME: PHYSICIAN: NADINE MEJIA RESOURCE: NADINE MEJIA REASON FOR APPOINTMENT 1. POST PROCEDURE HISTORY OF PRESENT ILLNESS HISTORY OF PRESENT ILLNESS: HERE FOR POST PROCEDURE F/U.HAD LESI ON 08/07/18.REPORTING REDUCTION IN LBP AND RESOLUTION OF RIGHT ANTERIORLATERAL THIGH PAIN THAT CONTINUES TODAY.CHIEF AREA OF PAIN IS LOWER THORACIC SPINE.PAIN IN THIS REGION HAS ESCALATED OVER THE PAST YEAR.HISTORY OF FALL INJURY IN 2018 WHERE SHE LANDED ON HER BACK.RATING PAIN VAS 5./10. PAIN THE PATIENT DESCRIBES THE PAIN... FALL RISK SCREENING: SCREENING :NO FALLS REPORTED IN THE LAST YEAR CURRENT MEDICATIONS TAKING CARVEDILOL 12.5 MG TABLET ORALLY TWICE DAILY TAKING LYRICA 100 MG CAPSULE 1 CAPSULE ORALLY THREE TIMES DAILY TAKING PRIMIDONE 250 MG TABLET ONE TABLET IN AM, 1/2 TABLET IN EVENING ORALLY TAKING TORSEMIDE 20 MG TABLET 2 ORALLY ONCE DAILY TAKING ASPIRIN ADULT LOW DOSE 81 MG TABLET DELAYED RELEASE 1 TABLET ORALLY ONCE A DAY TAKING VITAMIN D3 - LIQUID 25 MGS ORALLY DAILY TAKING ASPERCREME 10 % LOTION EXTERNALLY TAKING POTASSIUM BICARB-CITRIC ACID 10 MEQ TABLET EFFERVESCENT 1 TABLET ORALLY TWICE A DAY TAKING SPIRONOLACTONE 25 MG TABLET 1 TABLET ORALLY TAKING ACETAMINOPHEN 325 MG TABLET 1 TABLET NEEDED ORALLY EVERY 4 HRS NOT-TAKING MIRALAX SUSPENSION 17 GRAMS ORALLY AT HOUR OF SLEEP NEEDED, NOTES: NONE RECENTLY DISCONTINUED MAGNESIUM 300 MG CAPSULE 1 CAPSULE WITH A MEAL ORALLY ONCE A DAY MEDICATION LIST REVIEWED AND RECONCILED WITH THE PATIENT PAST MEDICAL HISTORY BLADDER WALL THICKENING BLOOD CLOT ON RIGHT OVARY LOW BACK PAIN CARPAL TUNNEL LEFT AND LEFT ELBOW PAIN AORTIC STENOSIS AND HEART MURMUR BICUSPID, AORTIC VALVE LOW POTASSIUM NEW DX ODF DEPPRESSION ALLERGIES NEOMYCIN SULFATE: RASH - ALLERGY ADHESIVE TAPE: RASH - ALLERGY BACITRACIN: RASH - ALLERGY FLOURACINE EYE DROPS: BURNING,ITCHY AND SWOLLEN EYES - ALLERGY SURGICAL HISTORY CARPAL TUNNEL ON ELBOW LEFT 02/2015 VAGINAL HYSTER 12/2012 KNEE ARTHROSCOPY-LEFT 09/2007 ACOUSTIC NEUROMA 08/1995 ENDOMETRIOSIS LAPROSCOPY 10/1991 LEFT EAR OPERATION 12/1989 GALL BLADDER 01/1985 OPEN ZAIDA FUNDOPLICATION 01/01/2017 APPENDECTOMY/ CYST REMOVED RIGHT OVARY 1975 LEFT CARPEL TUNNEL ELBOW AND HAND FAMILY HISTORY FATHER: , DIAGNOSED WITH HYPERTENSION, HEART DISEASE, CANCER MOTHER: , HEART DISEASE, STROKE, DIABETES 2DAUGHTER(S) - HEALTHY. DAD-PROSTATE AND LUNG CADAUGHTER - BIPOLARDAUGHTER - HIGH CALCIUMBROGTHER DIALYSIS, IDDM. SOCIAL HISTORY GENERAL: TOBACCO USE ARE YOU A:FORMER SMOKER OTHERS AT HOME: SPOUSE. DIET: REGULAR. LANGUAGE LANGUAGES SPOKEN:[place] ISLANDER DOMESTIC VIOLENCE DO YOU FEEL SAFE IN YOUR ENVIRONMENT?YES RECREATIONAL DRUG USE DRUG USE? NO. EXERCISE: STRECHES IN THE MORNING. 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 N/A HAS THE PATIENT BEEN EDUCATED REGARDING HIS/HER PLAN OF CARE?YES HAS THE PATIENT BEEN EDUCATED REGARDING PAIN, THE RISK FOR PAIN, THE IMPORTANCE OF EFFECTIVE PAIN MANAGEMENT, AND THE PAIN ASSESSMENT PROCESS?YES LATEX QUESTIONNAIRE LATEX ALLERGY : HAVE YOU EVER DEVELOPED ANY TYPE OF REACTION AFTER HANDLING LATEX PRODUCTS SUCH RUBBER GLOVES, CONDOMS, DIAPHRAGMS, BALLOONS, SOCKS, OR UNDERWEAR?NO LATEX ALLERGY : HAVE YOU EVER DEVELOPED ANY TYPE OF REACTION DURING OR AFTER DENTAL APPOINTMENT, VAGINAL/RECTAL EXAMINATION, SURGICAL PROCEDURE, OR ANY OTHER EXPOSURE?NO LATEX RISK : HAVE YOU EVER HAD ANY DIFFICULTY BREATHING OR HIVES AFTER EATING OR HANDLING ANY FRUITS, OR VEGETABLES; SUCH KIWI, BANANAS, STONE FRUITS, OR CHESTNUTSNO LATEX RISK : DO YOU HAVE A PREVIOUS PERSONAL HISTORY OF MORE THAN NINE SURGERIES, SPINA BIFIDA, OR REPEATED CATHERIZATIONS? NO LATEX RISK : ARE YOU FREQUENTLY EXPOSED TO LATEX PRODUCTS IN YOUR OCCUPATION?NO DATE ASKED : 08/07/2018 CAFFEINE CAFFEINE USE? YES , HOW OFTEN AND HOW MUCH? 2 CUPS PER DAY. ADVANCE DIRECTIVE ADVANCE DIRECTIVE DISCUSSED WITH PATIENT:YES HCP--,JG [phone](H) JEWISH [id number] MANDAEISM MARITAL STATUS: . FEMALE 6 MONTH RISK ASSESSMENT FOR STD SPOUSE. ALCOHOL SCREENING DID YOU HAVE A DRINK CONTAINING ALCOHOL IN THE PAST YEAR?YES HOW OFTEN DID YOU HAVE A DRINK CONTAINING ALCOHOL IN THE PAST YEAR?MONTHLY OR LESS (1 POINT) HOW MANY DRINKS DID YOU HAVE ON A TYPICAL DAY WHEN YOU WERE DRINKING IN THE PAST YEAR?1 OR 2 (0 POINTS) HOW OFTEN DID YOU HAVE SIX OR MORE DRINKS ON ONE OCCASION IN THE PAST YEAR?NEVER (0 POINTS) POINTS1 INTERPRETATIONNEGATIVE OCCUPATION: DISABLED. 11/14/17 REVIEWED WITH PT. RUMA WITH PATIENT 11/22/17 1145 JSREVIEWED WITH PATIENT 06/26/18 1415 LASREVIEWED WITH PATIENT 08/07/18 1405 LAS. HOSPITALIZATION/MAJOR DIAGNOSTIC PROCEDURE CHESTPAIN R/O PA 2013 SURGERIES REVIEW OF SYSTEMS REVIEWED BY: PROVIDER: NADINE SCHWARTZ . CONSTITUTIONAL: ANY CHANGE IN YOUR MEDICAL CONDITION? NO . CHILLS NO . FEVER NO . INFECTION: DO YOU HAVE NEW INFECTIONS? NO . DO YOU HAVE HISTORY OF MRSA? NO . MUSCULOSKELETAL: ANY NEW PATTERNS OF PAIN OR NUMBNESS? NO . GASTROENTEROLOGY: ANY NEW CHANGE IN BOWEL CONTROL? NO . GENITOURINARY: ANY NEW CHANGE IN BLADDER CONTROL? NO . IS THERE A CHANCE YOU COULD BE ? NO . HEMATOLOGY/LYMPH: DO YOU TAKE ANY BLOOD THINNERS? (FOR EXAMPLE- COUMADIN, PLAVIX, AGGRENOX, PLATEL, PRADAXA, OR XARELTO) NO . WHEN WAS YOUR LAST DOSE? DATE: TIME: . NEUROLOGY: HAVE YOU FALLEN IN THE PAST 12 MONTHS? NO . ANY NEW EXTREMITY NUMBNESS OR WEAKNESS? NO . CARDIOLOGY: DO YOU HAVE A PACEMAKER OR DEFIBRILLATOR? NO . RESPIRATORY: HAVE YOU BEEN SICK IN THE PAST WEEK? NO . FEVER NO . FLU LIKE SYMPTOMS? NO . COUGH NO . INTEGUMENTARY: DO YOU HAVE ANY RASHES OR OPEN SORES? NO . ALLERGIC/IMMUNO: ARE YOU ALLERGIC TO IV DYE? NO . ANY NEW ALLERGIES? NO . PSYCHIATRIC: DO YOU HAVE THOUGHTS OF HURTING YOURSELF OR SOMEONE ELSE? NO . ARE YOU ABUSED, NEGLECTED, OR IN AN UNSAFE ENVIRONMENT? NO . ENDOCRINOLOGY: ARE YOU DIABETIC? NO . OTHER: DO YOU NEED ANY PRESCRIPTIONS? NO . IF YES, PLEASE LIST: ____ . ANY NEW PROBLEMS WITH YOUR MEDICATIONS? NO . WHEN DID YOU LAST EAT? ____ . WHEN DID YOU LAST DRINK? ____ . WHAT DID YOU LAST DRINK? ____ . NAME OF PERSON DRIVING YOU HOME? ____ . DO YOU HAVE ANY OTHER QUESTIONS OR CONCERNS NO . VITAL SIGNS WT 226 LBS, HT 66 IN, BMI 36.47 INDEX, BP 126/59 MM HG, HR 59 /MIN, RR 16 /MIN, TEMP 97.6 F, OXYGEN SAT % 97%, NA INITIALS AW 1016, REVIEWED BY: EM. EXAMINATION GENERAL EXAMINATION: GENERAL AWAKE,ALERT ,PLEAASANT . PSYCH AFFECT NORMAL . LUNGS: LUNG GNUYEN ARE CLEAR TO AUSCULTATION BILATERALLY. GOOD MOVEMENT OF AIR . HEART: S1, S2 IN A REGULAR RATE AND RHYTHM. NO SIGNIFICANT MURMURS, RUBS OR GALLOPS NOTED . THORACIC SPINETENDER WITH PALPATION THORACIC PARASPINA. ASSESSMENTS PAIN IN THORACIC SPINE - M54.6 (PRIMARY) TREATMENT PAIN IN THORACIC SPINE MRI : THORACIC [id number],ASHLEY 08/22/2018 2:48:04 PM > APPROVED FOR MRI THORACIC SPINE AT [facility] 08/22/18-11/20/2018 AUTH# [id number]. OKAY TO BOOK PROCEDURE CODES FA211 ESTABILISHED PATIENT FORMERLY [facility] CHARGE DISPOSITION & COMMUNICATION FOLLOW UP 6 WEEKS ELECTRONICALLY SIGNED BY LANA BRADFORD ON 09/01/2018 AT 11:01 AM EDT DISCLAIMER : THIS IS A VISIT SUMMARY EXTRACTED FROM THE [employer] CHART. IT IS NOT A COPY OF THE [employer] PROGRESS NOTE. GABRIEL
== END ==
LOC: M PAIN 10:30
PROVIDERS: ATTEND Nurse Practitioner Family
DX: M54.6 Pain in thoracic spine (principal); I35.0 Nonrheumatic aortic (valve) stenosis; E87.6 Hypokalemia; F32.9 Major depressive disorder, single episode, unspecified; Z87.891 Personal history of nicotine dependence; Z79.82 Long term (current) use of aspirin; Z79.899 Other long term (current) drug therapy; Z88.1 Allergy status to other antibiotic agents; Z88.8 Allergy status to other drugs, medicaments and biological substances; Z91.048 Other nonmedicinal substance allergy status

== ENCOUNTER → 2018-10-10 | Outpatient (CLI) | payer BC, MEDICARE ==
--- NOTE | 2018-10-30 01:13 | ECWPNPC ---
PATIENT NAME: CARMELA LALA : 1960 GENDER: FEMALE VISIT DATE: 10/10/2018 DISCHARGE DATE: 10/10/18 1403 VISIT LOCKED DATE TIME: PHYSICIAN: NADINE MEJIA RESOURCE: NADINE MEJIA REASON FOR APPOINTMENT 1. 6 WEEKS HISTORY OF PRESENT ILLNESS HISTORY OF PRESENT ILLNESS: HERE 6 WK F/U TO REVIEW MRI THORACIC SPINE.HAD LESI ON 08/07/18.REPORTED REDUCTION IN LBP AND RESOLUTION OF RIGHT ANTERIORLATERAL THIGH PAIN THAT CONTINUES TODAY.CHIEF AREA OF PAIN IS LOWER THORACIC SPINE.PAIN IN THIS REGION HAS ESCALATED OVER THE PAST YEAR.HISTORY OF FALL INJURY IN 2018 WHERE SHE LANDED ON HER BACK.RATING PAIN VAS 8/10.MRI THORACIC SPINE IS REVIEWED DONE 08/2018 PER MY ORDER.SHOWING ARTHRITIS BUT RELATIVELY NO CHANGE FROM PRIOR STUDY. PAIN THE PATIENT DESCRIBES THE PAIN... THE PATIENT DESCRIBES THE PAIN... FALL RISK SCREENING: SCREENING :NO FALLS REPORTED IN THE LAST YEAR CURRENT MEDICATIONS TAKING CARVEDILOL 12.5 MG TABLET ORALLY TWICE DAILY TAKING LYRICA 100 MG CAPSULE 1 CAPSULE ORALLY THREE TIMES DAILY TAKING PRIMIDONE 250 MG TABLET ONE TABLET IN AM, 1/2 TABLET IN EVENING ORALLY TAKING TORSEMIDE 20 MG TABLET 2 ORALLY ONCE DAILY TAKING ASPIRIN ADULT LOW DOSE 81 MG TABLET DELAYED RELEASE 1 TABLET ORALLY ONCE A DAY TAKING VITAMIN D3 - LIQUID 25 MGS ORALLY DAILY TAKING ASPERCREME 10 % LOTION EXTERNALLY TAKING POTASSIUM BICARB-CITRIC ACID 10 MEQ TABLET EFFERVESCENT 1 TABLET ORALLY TWICE A DAY TAKING SPIRONOLACTONE 25 MG TABLET 1 TABLET ORALLY TAKING ACETAMINOPHEN 325 MG TABLET 1 TABLET NEEDED ORALLY EVERY 4 HRS TAKING METFORMIN HCL 500 MG/5ML SOLUTION 5 ML WITH A MEAL ORALLY BID TAKING TRAMADOL HCL 50 MG TABLET SOLUBLE DIRECTED ORALLY NOT-TAKING MIRALAX SUSPENSION 17 GRAMS ORALLY AT HOUR OF SLEEP NEEDED, NOTES: NONE RECENTLY MEDICATION LIST REVIEWED AND RECONCILED WITH THE PATIENT PAST MEDICAL HISTORY BLADDER WALL THICKENING BLOOD CLOT ON RIGHT OVARY LOW BACK PAIN CARPAL TUNNEL LEFT AND LEFT ELBOW PAIN AORTIC STENOSIS AND HEART MURMUR BICUSPID, AORTIC VALVE LOW POTASSIUM NEW DX ODF DEPPRESSION NIDDM ALLERGIES NEOMYCIN SULFATE: RASH - ALLERGY ADHESIVE TAPE: RASH - ALLERGY BACITRACIN: RASH - ALLERGY FLOURACINE EYE DROPS: BURNING,ITCHY AND SWOLLEN EYES - ALLERGY SURGICAL HISTORY CARPAL TUNNEL ON ELBOW LEFT 02/2015 VAGINAL HYSTER 12/2012 KNEE ARTHROSCOPY-LEFT 09/2007 ACOUSTIC NEUROMA 08/1995 ENDOMETRIOSIS LAPROSCOPY 10/1991 LEFT EAR OPERATION 12/1989 GALL BLADDER 01/1985 OPEN ZAIDA FUNDOPLICATION 01/01/2017 APPENDECTOMY/ CYST REMOVED RIGHT OVARY 1975 LEFT CARPEL TUNNEL ELBOW AND HAND FAMILY HISTORY FATHER: , DIAGNOSED WITH HYPERTENSION, UNSPECIFIED HEART DISEASE, OTHER MALIGNANT NEOPLASM OF UNSPECIFIED SITE MOTHER: , DIABETES, UNSPECIFIED HEART DISEASE, UNSPECIFIED CEREBRAL ARTERY OCCLUSION WITH CEREBRAL INFARCTION 2DAUGHTER(S) - HEALTHY. DAD-PROSTATE AND LUNG CADAUGHTER - BIPOLARDAUGHTER - HIGH CALCIUMBROGTHER DIALYSIS, IDDM. SOCIAL HISTORY GENERAL: TOBACCO USE ARE YOU A:FORMER SMOKER OTHERS AT HOME: SPOUSE. DIET: REGULAR. LANGUAGE LANGUAGES SPOKEN:SAMMARINESE DOMESTIC VIOLENCE DO YOU FEEL SAFE IN YOUR ENVIRONMENT?YES RECREATIONAL DRUG USE DRUG USE? NO. EXERCISE: STRECHES IN THE MORNING. 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 N/A HAS THE PATIENT BEEN EDUCATED REGARDING HIS/HER PLAN OF CARE?YES HAS THE PATIENT BEEN EDUCATED REGARDING PAIN, THE RISK FOR PAIN, THE IMPORTANCE OF EFFECTIVE PAIN MANAGEMENT, AND THE PAIN ASSESSMENT PROCESS?YES LATEX QUESTIONNAIRE LATEX ALLERGY : HAVE YOU EVER DEVELOPED ANY TYPE OF REACTION AFTER HANDLING LATEX PRODUCTS SUCH RUBBER GLOVES, CONDOMS, DIAPHRAGMS, BALLOONS, SOCKS, OR UNDERWEAR?NO LATEX ALLERGY : HAVE YOU EVER DEVELOPED ANY TYPE OF REACTION DURING OR AFTER DENTAL APPOINTMENT, VAGINAL/RECTAL EXAMINATION, SURGICAL PROCEDURE, OR ANY OTHER EXPOSURE?NO DATE ASKED : 08/07/2018 LATEX RISK : HAVE YOU EVER HAD ANY DIFFICULTY BREATHING OR HIVES AFTER EATING OR HANDLING ANY FRUITS, OR VEGETABLES; SUCH KIWI, BANANAS, STONE FRUITS, OR CHESTNUTSNO LATEX RISK : DO YOU HAVE A PREVIOUS PERSONAL HISTORY OF MORE THAN NINE SURGERIES, SPINA BIFIDA, OR REPEATED CATHERIZATIONS? NO LATEX RISK : ARE YOU FREQUENTLY EXPOSED TO LATEX PRODUCTS IN YOUR OCCUPATION?NO CAFFEINE CAFFEINE USE? YES , HOW OFTEN AND HOW MUCH? 2 CUPS PER DAY. ADVANCE DIRECTIVE ADVANCE DIRECTIVE DISCUSSED WITH PATIENT:YES HCP--,JG [phone](H) ORTHODOX [id number] HINDUISM MARITAL STATUS: . FEMALE 6 MONTH RISK ASSESSMENT FOR STD SPOUSE. ALCOHOL SCREENING DID YOU HAVE A DRINK CONTAINING ALCOHOL IN THE PAST YEAR?YES HOW OFTEN DID YOU HAVE SIX OR MORE DRINKS ON ONE OCCASION IN THE PAST YEAR?NEVER (0 POINTS) HOW MANY DRINKS DID YOU HAVE ON A TYPICAL DAY WHEN YOU WERE DRINKING IN THE PAST YEAR?1 OR 2 (0 POINTS) HOW OFTEN DID YOU HAVE A DRINK CONTAINING ALCOHOL IN THE PAST YEAR?MONTHLY OR LESS (1 POINT) POINTS1 INTERPRETATIONNEGATIVE OCCUPATION: DISABLED. 11/14/17 REVIEWED WITH PT. ADREVIEWED WITH PATIENT 11/22/17 1145 JSREVIEWED WITH PATIENT 06/26/18 1415 LASREVIEWED WITH PATIENT 08/07/18 1405 LASREVIEWED WITH PATIENT 10/10/18 1300 LAS. HOSPITALIZATION/MAJOR DIAGNOSTIC PROCEDURE CHESTPAIN R/O RI 2013 SURGERIES REVIEW OF SYSTEMS REVIEWED BY: PROVIDER: NADINE SCHWARTZ . CONSTITUTIONAL: ANY CHANGE IN YOUR MEDICAL CONDITION? YES PT REPORTS SHE HAS BEEN RECENTLY DIAGNOSED WITH TMJ AND NIDDM.. . CHILLS NO . FEVER NO . INFECTION: DO YOU HAVE NEW INFECTIONS? NO . DO YOU HAVE HISTORY OF MRSA? NO . MUSCULOSKELETAL: ANY NEW PATTERNS OF PAIN OR NUMBNESS? NO . GASTROENTEROLOGY: ANY NEW CHANGE IN BOWEL CONTROL? NO . GENITOURINARY: ANY NEW CHANGE IN BLADDER CONTROL? NO . IS THERE A CHANCE YOU COULD BE ? NO . HEMATOLOGY/LYMPH: DO YOU TAKE ANY BLOOD THINNERS? (FOR EXAMPLE- COUMADIN, PLAVIX, AGGRENOX, PLATEL, PRADAXA, OR XARELTO) NO . WHEN WAS YOUR LAST DOSE? DATE: TIME: . NEUROLOGY: HAVE YOU FALLEN IN THE PAST 12 MONTHS? NO . ANY NEW EXTREMITY NUMBNESS OR WEAKNESS? NO . CARDIOLOGY: DO YOU HAVE A PACEMAKER OR DEFIBRILLATOR? NO . RESPIRATORY: HAVE YOU BEEN SICK IN THE PAST WEEK? NO . FEVER NO . FLU LIKE SYMPTOMS? NO . COUGH NO . INTEGUMENTARY: DO YOU HAVE ANY RASHES OR OPEN SORES? NO . ALLERGIC/IMMUNO: ARE YOU ALLERGIC TO IV DYE? NO . ANY NEW ALLERGIES? NO . PSYCHIATRIC: DO YOU HAVE THOUGHTS OF HURTING YOURSELF OR SOMEONE ELSE? NO . ARE YOU ABUSED, NEGLECTED, OR IN AN UNSAFE ENVIRONMENT? NO . ENDOCRINOLOGY: ARE YOU DIABETIC? YES . OTHER: DO YOU NEED ANY PRESCRIPTIONS? NO . IF YES, PLEASE LIST: ____ . ANY NEW PROBLEMS WITH YOUR MEDICATIONS? NO . WHEN DID YOU LAST EAT? ____ . WHEN DID YOU LAST DRINK? ____ . WHAT DID YOU LAST DRINK? ____ . NAME OF PERSON DRIVING YOU HOME? ____ . DO YOU HAVE ANY OTHER QUESTIONS OR CONCERNS NO . VITAL SIGNS WT 227.4 LBS, HT 66 IN, BMI 36.70 INDEX, BP 141/63 MM HG, HR 87 /MIN, RR 16 /MIN, TEMP 97.3 F, OXYGEN SAT % 94%, SAFE IN ENV? (Y/N) YES, NA INITIALS SC 13:10, REVIEWED BY: EXAMINATION GENERAL EXAMINATION: GENERAL AWAKE,ALERT ,PLEAASANT . PSYCH AFFECT NORMAL . LUNGS: LUNG NGUYEN ARE CLEAR TO AUSCULTATION BILATERALLY. GOOD MOVEMENT OF AIR . HEART: S1, S2 IN A REGULAR RATE AND RHYTHM. NO SIGNIFICANT MURMURS, RUBS OR GALLOPS NOTED . THORACIC SPINE MARKED TENDERNESS OVER MID TO LOWER THORACIC FACETS WITH FACET LOADING. DIAGNOSTIC TESTS REVIEWED MRI THORACIC SPINE-09/02/18. 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 PREVENTIVE MEDICINE PAIN CLINIC TEACHING: PROCEDURE TEACHING PROCEDURE AND PRE PROCEDURE INSTRUCTIONS REVIEWED, PATIENT VERBALIZES UNDERSTANDING. 10/10/18 PROCEDURE CODES FA211 ESTABILISHED PATIENT [facility] CHARGE DISPOSITION & COMMUNICATION FOLLOW UP POST PROC (REASON: T7/8-8/9-9/10 BILAT THORACIC FACET BLOCK THERAPEUTIC) ELECTRONICALLY SIGNED BY LANA BRADFORD ON 10/29/2018 AT 10:55 AM EDT DISCLAIMER : THIS IS A VISIT SUMMARY EXTRACTED FROM THE [employer] CHART. IT IS NOT A COPY OF THE [employer] PROGRESS NOTE. GABRIEL
== END ==
LOC: M PAIN 13:15
PROVIDERS: ATTEND Nurse Practitioner Family
DX: M47.814 Spondylosis without myelopathy or radiculopathy, thoracic region (principal); E11.9 Type 2 diabetes mellitus without complications; Z87.891 Personal history of nicotine dependence; Z88.1 Allergy status to other antibiotic agents; Z88.8 Allergy status to other drugs, medicaments and biological substances; Z91.09 Other allergy status, other than to drugs and biological substances; Z79.82 Long term (current) use of aspirin; Z79.84 Long term (current) use of oral hypoglycemic drugs; Z79.891 Long term (current) use of opiate analgesic; Z79.899 Other long term (current) drug therapy

== ENCOUNTER → 2018-12-17 | Outpatient (CLI) | payer BC, MEDICARE ==
[~2018-12-17] MED LIST changes: +BUPIVACAINE HCL 0.25% 30 ML VIAL As Ordered ONE; +TRIAMCINOLONE ACETONIDE SUSP 40 MG/ML VIAL (J3301) As Ordered ONE; -methylPREDNISolone SUSP 40 MG/ML (DEPO-medrol) VIAL (J1030) As Ordered ONE
--- NOTE | 2018-12-17 16:33 | REP ---
Partial lumbar spine: Single view. History: Bilateral therapeutic lumbar facet injection for pain. 11 seconds of fluoroscopy time is reported. Findings: A single AP view of the lumbar spine documents various bilateral needle positions and contrast injections associated with lumbar facet injection procedure. Electronically Signed by Nehemias Jones MD 12/17/2018 04:25 P
--- NOTE | 2018-12-31 03:09 | ECWPNPC ---
PATIENT NAME: CARMELA LALA : 1960 GENDER: FEMALE VISIT DATE: 12/17/2018 DISCHARGE DATE: 12/17/18 1604 VISIT LOCKED DATE TIME: PHYSICIAN: CHICO REYNA MD RESOURCE: CHICO REYNA MD REASON FOR APPOINTMENT 1. THORACOLUMBAR THERAPEUTIC FACET BLOCK BILAT HISTORY OF PRESENT ILLNESS HISTORY OF PRESENT ILLNESS: PAIN THE PATIENT DESCRIBES THE PAIN... 58 YEAR OLD FEMALE PATIENT WITH A HISTORY OF CHRONIC LOW BACK PAIN. THE PATIENT DESCRIBES THE PAIN ACHING, SORE, TENDER, SHARP, STABBING, SHOOTING, AND CONTINUOUS WITH A PAIN SCORE OF 6-9/10 DEPENDING ON PHYSICAL ACTIVITY. THE PATIENT SAYS CURRENTLY HER PAIN IS MAINLY IN HER UPPER LUMBAR AREA. THE PATIENT SAYS HER PAIN IS AFFECTING HER ABILITY TO PERFORM HER DAILY ACTIVITIES SUCH CLEANING HER HOUSE, GROCERY SHOPPING, AND COOKING. PATIENT DENIES UNEXPLAINABLE WEIGHT LOSS, FEVER, CHILLS, NEW CHANGES ON HER URINARY OR BOWEL CONTROL. FALL RISK SCREENING: SCREENING :NO FALLS REPORTED IN THE LAST YEAR CURRENT MEDICATIONS TAKING CARVEDILOL 12.5 MG TABLET ORALLY TWICE DAILY, NOTES: 12/17 629 TAKING LYRICA 100 MG CAPSULE 1 CAPSULE ORALLY THREE TIMES DAILY, NOTES: 12/17 629 TAKING PRIMIDONE 250 MG TABLET 1 TABLET ORALLY TWICE DAILY, NOTES: 12/17 629 TAKING TORSEMIDE 20 MG TABLET 2 ORALLY ONCE DAILY, NOTES: 12/17 629 TAKING ASPIRIN ADULT LOW DOSE 81 MG TABLET DELAYED RELEASE 1 TABLET ORALLY ONCE A DAY, NOTES: 12/17 629 TAKING VITAMIN D3 50 MCG (2000 UT) TABLET CHEWABLE 2 GUMMIES ORALLY DAILY, NOTES: 12/17 629 TAKING ASPERCREME 10 % LOTION EXTERNALLY NEEDED, NOTES: 2 DAYS AGO TAKING SPIRONOLACTONE 25 MG TABLET 1 TABLET ORALLY DAILY, NOTES: 12/17 629 TAKING ACETAMINOPHEN 325 MG TABLET 1 TABLET NEEDED ORALLY EVERY 4 HRS, NOTES: NONE RECENT TAKING METFORMIN HCL 500 MG/5ML SOLUTION 5 ML WITH A MEAL ORALLY BID, NOTES: 12/16 2229 TAKING TRAMADOL HCL 50 MG TABLET SOLUBLE DIRECTED ORALLY , NOTES: NONE RECENT TAKING POTASSIUM CHLORIDE 10 MEQ CAPSULE EXTENDED RELEASE 1 CAPSULE WITH FOOD ORALLY TWICE A DAY, NOTES: 12/17 629 NOT-TAKING MIRALAX SUSPENSION 17 GRAMS ORALLY AT HOUR OF SLEEP NEEDED, NOTES: NONE RECENTLY DISCONTINUED POTASSIUM BICARB-CITRIC ACID 10 MEQ TABLET EFFERVESCENT 1 TABLET ORALLY TWICE A DAY MEDICATION LIST REVIEWED AND RECONCILED WITH THE PATIENT PAST MEDICAL HISTORY BLADDER WALL THICKENING BLOOD CLOT ON RIGHT OVARY LOW BACK PAIN CARPAL TUNNEL LEFT AND LEFT ELBOW PAIN AORTIC STENOSIS AND HEART MURMUR BICUSPID, AORTIC VALVE LOW POTASSIUM NEW DX ODF DEPPRESSION NIDDM SPONDYLOSIS OF CERVICAL REGION THORACIC PAIN ALLERGIES NEOMYCIN SULFATE: RASH - ALLERGY ADHESIVE TAPE: RASH - ALLERGY BACITRACIN: RASH - ALLERGY FLOURACINE EYE DROPS: BURNING,ITCHY AND SWOLLEN EYES - ALLERGY SURGICAL HISTORY CARPAL TUNNEL ON ELBOW LEFT 02/2015 VAGINAL HYSTER 12/2012 KNEE ARTHROSCOPY-LEFT 09/2007 ACOUSTIC NEUROMA 08/1995 ENDOMETRIOSIS LAPROSCOPY 10/1991 LEFT EAR OPERATION 12/1989 GALL BLADDER 01/1985 OPEN ZAIDA FUNDOPLICATION 01/01/2017 APPENDECTOMY/ CYST REMOVED RIGHT OVARY 1975 LEFT CARPEL TUNNEL ELBOW AND HAND FAMILY HISTORY FATHER: , DIAGNOSED WITH HYPERTENSION, UNSPECIFIED HEART DISEASE, OTHER MALIGNANT NEOPLASM OF UNSPECIFIED SITE MOTHER: , DIABETES, UNSPECIFIED HEART DISEASE, UNSPECIFIED CEREBRAL ARTERY OCCLUSION WITH CEREBRAL INFARCTION 2DAUGHTER(S) - HEALTHY. DAD-PROSTATE AND LUNG CADAUGHTER - BIPOLARDAUGHTER - HIGH CALCIUMBROGTHER DIALYSIS, IDDM. SOCIAL HISTORY GENERAL: TOBACCO USE ARE YOU A:FORMER SMOKER OTHERS AT HOME: SPOUSE. DIET: REGULAR. LANGUAGE LANGUAGES SPOKEN:GUYANESE DOMESTIC VIOLENCE DO YOU FEEL SAFE IN YOUR ENVIRONMENT?YES RECREATIONAL DRUG USE DRUG USE? NO. EXERCISE: STRECHES IN THE MORNING. 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 N/A HAS THE PATIENT BEEN EDUCATED REGARDING HIS/HER PLAN OF CARE?YES HAS THE PATIENT BEEN EDUCATED REGARDING PAIN, THE RISK FOR PAIN, THE IMPORTANCE OF EFFECTIVE PAIN MANAGEMENT, AND THE PAIN ASSESSMENT PROCESS?YES LATEX QUESTIONNAIRE LATEX ALLERGY : HAVE YOU EVER DEVELOPED ANY TYPE OF REACTION AFTER HANDLING LATEX PRODUCTS SUCH RUBBER GLOVES, CONDOMS, DIAPHRAGMS, BALLOONS, SOCKS, OR UNDERWEAR?NO LATEX ALLERGY : HAVE YOU EVER DEVELOPED ANY TYPE OF REACTION DURING OR AFTER DENTAL APPOINTMENT, VAGINAL/RECTAL EXAMINATION, SURGICAL PROCEDURE, OR ANY OTHER EXPOSURE?NO LATEX RISK : HAVE YOU EVER HAD ANY DIFFICULTY BREATHING OR HIVES AFTER EATING OR HANDLING ANY FRUITS, OR VEGETABLES; SUCH KIWI, BANANAS, STONE FRUITS, OR CHESTNUTSNO LATEX RISK : DO YOU HAVE A PREVIOUS PERSONAL HISTORY OF MORE THAN NINE SURGERIES, SPINA BIFIDA, OR REPEATED CATHERIZATIONS? YES - PLEASE INDICATE : > 9 SURGERIES LATEX RISK : ARE YOU FREQUENTLY EXPOSED TO LATEX PRODUCTS IN YOUR OCCUPATION?NO DATE ASKED : 12/17/2018 CAFFEINE CAFFEINE USE? YES , HOW OFTEN AND HOW MUCH? 2 CUPS PER DAY. ADVANCE DIRECTIVE ADVANCE DIRECTIVE DISCUSSED WITH PATIENT:YES HCP--,JG [phone](H) HINDU [id number] HINDUISM MARITAL STATUS: . FEMALE 6 MONTH RISK ASSESSMENT FOR STD SPOUSE. ALCOHOL SCREENING DID YOU HAVE A DRINK CONTAINING ALCOHOL IN THE PAST YEAR?YES HOW OFTEN DID YOU HAVE SIX OR MORE DRINKS ON ONE OCCASION IN THE PAST YEAR?NEVER (0 POINTS) HOW MANY DRINKS DID YOU HAVE ON A TYPICAL DAY WHEN YOU WERE DRINKING IN THE PAST YEAR?1 OR 2 (0 POINTS) HOW OFTEN DID YOU HAVE A DRINK CONTAINING ALCOHOL IN THE PAST YEAR?MONTHLY OR LESS (1 POINT) POINTS1 INTERPRETATIONNEGATIVE OCCUPATION: DISABLED. 11/14/17 REVIEWED WITH PT. ADREVIEWED WITH PATIENT 11/22/17 1145 JSREVIEWED WITH PATIENT 06/26/18 1415 LASREVIEWED WITH PATIENT 08/07/18 1405 LASREVIEWED WITH PATIENT 10/10/18 1300 LAS12/17/18 1427 REVIEWED WITH PT. AD. HOSPITALIZATION/MAJOR DIAGNOSTIC PROCEDURE CHESTPAIN R/O IN 2013 SURGERIES REVIEW OF SYSTEMS REVIEWED BY: PROVIDER: CHICO REYNA MD . CONSTITUTIONAL: ANY CHANGE IN YOUR MEDICAL CONDITION? NO . CHILLS NO . FEVER NO . INFECTION: DO YOU HAVE NEW INFECTIONS? NO . DO YOU HAVE HISTORY OF MRSA? NO . MUSCULOSKELETAL: ANY NEW PATTERNS OF PAIN OR NUMBNESS? YES, PAIN HAS INCREASED IN HER BACK . GASTROENTEROLOGY: ANY NEW CHANGE IN BOWEL CONTROL? NO . GENITOURINARY: ANY NEW CHANGE IN BLADDER CONTROL? NO . IS THERE A CHANCE YOU COULD BE ? NO . HEMATOLOGY/LYMPH: DO YOU TAKE ANY BLOOD THINNERS? (FOR EXAMPLE- COUMADIN, PLAVIX, AGGRENOX, PLATEL, PRADAXA, OR XARELTO) NO . WHEN WAS YOUR LAST DOSE? DATE: TIME: . NEUROLOGY: HAVE YOU FALLEN IN THE PAST 12 MONTHS? NO . ANY NEW EXTREMITY NUMBNESS OR WEAKNESS? YES, NUMBNESS RIGHT LEG X 2 WEEKS . CARDIOLOGY: DO YOU HAVE A PACEMAKER OR DEFIBRILLATOR? NO . RESPIRATORY: HAVE YOU BEEN SICK IN THE PAST WEEK? NO . FEVER NO . FLU LIKE SYMPTOMS? NO . COUGH NO . INTEGUMENTARY: DO YOU HAVE ANY RASHES OR OPEN SORES? NO . ALLERGIC/IMMUNO: ARE YOU ALLERGIC TO IV DYE? NO . ANY NEW ALLERGIES? NO . PSYCHIATRIC: DO YOU HAVE THOUGHTS OF HURTING YOURSELF OR SOMEONE ELSE? NO . ARE YOU ABUSED, NEGLECTED, OR IN AN UNSAFE ENVIRONMENT? NO . ENDOCRINOLOGY: ARE YOU DIABETIC? YES, FSBS @ 0700 WAS 202 . OTHER: DO YOU NEED ANY PRESCRIPTIONS? NO . IF YES, PLEASE LIST: ____ . ANY NEW PROBLEMS WITH YOUR MEDICATIONS? NO . WHEN DID YOU LAST EAT? 12/17 0630 . WHEN DID YOU LAST DRINK? 12/17 1130 . WHAT DID YOU LAST DRINK? WATER . NAME OF PERSON DRIVING YOU HOME? JG . DO YOU HAVE ANY OTHER QUESTIONS OR CONCERNS NO PT HAS NOT HAD ANY VACCINES IN THE PAST 30 DAYS. SHE PLANNING ON GETTING THE FLU SHOT THIS SAT. IT WAS EXPLAINED TO HER THAT SHE SHOULD WAIT 21 DAYS DUE TO THE STEROID IN INJECTION AND SHE VERBALIZED UNDERSTANDING. AD . VITAL SIGNS WT 232.0 LBS, HT 66 IN, BMI 37.44 INDEX, BP 164/79 MM HG, HR 70 /MIN, RR 16 /MIN, TEMP 98.0 F, OXYGEN SAT % 98%, SAFE IN ENV? (Y/N) Y, NA INITIALS AW 1339, REVIEWED BY: AD. EXAMINATION GENERAL EXAMINATION: PATIENT IS ALERT O X 3 AND COOPERATIVE. LUMBAR MRI DONE ON 11/26/2014 SHOWS FACET ARTHROPATHY CHANGES. 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 LALA'S PAIN MANAGEMENT CASE. THE PATIENT EXPRESSED THAT SHE WAS HAVING PAIN IN HER THORACIC, BUT NOW THE PAIN IS MAINLY LOCATED IN HER UPPER LUMBAR AREA. DUE TO THE THORACOLUMBAR SPONDYLOSIS AND ACUTE PAIN OVER THE LAST MONTH, I WOULD LIKE TO MOVE FORWARD WITH A BILATERAL T12-L1, L1-L2, AND L2-L3 THORACOLUMBAR THERAPEUTIC FACET BLOCK AT THIS TIME. WE DISCUSSED THE BENEFITS, RISKS, AND ALTERNATIVES OF THE INJECTION AND THE PATIENT WOULD LIKE TO PROCEED. THE PATIENT WILL FOLLOW UP IN SEVERAL WEEKS TO SEE HOW THE INJECTION IS HELPING WITH HER PAIN. INSTRUCTIONS WERE GIVEN, QUESTIONS WERE ANSWERED, PATIENT REPORTS UNDERSTANDING AND AGREES WITH THE PLAN. I, FINESSE PHILLIPS, DOCUMENTED THE ABOVE INFORMATION ACTING A SCRIBE FOR DR. REYNA. I HAVE REVIEWED THE ABOVE DOCUMENT, WRITTEN BY FINESSE HOLDERIBEdgardo AND I VERIFY THAT IT IS ACCURATE. . PROCEDURES PN THORACOLUMBAR FACET BLOCK THERAPEUTIC DATE OF PROCEDURE : PRE PROCEDURE DIAGNOSIS 1. THORACOLUMBAR SPONDYLOSIS 2. LUMBAR SPONDYLOSIS POST PROCEDURE DIAGNOSIS 1. THORACOLUMBAR SPONDYLOSIS 2. LUMBAR SPONDYLOSIS PROCEDURE BILATERAL T12-L1, L1-L2, AND L2-L3 THORACOLUMBAR FACET THERAPEUTIC BLOCK. SURGEON DR. CHICO REYNA CLINICAL QUALITY RN NONE ANESTHESIA LOCAL PRE PROCEDURE NOTE 58 YEAR-OLD PATIENT WITH HISTORY OF CHRONIC THORACOLUMBAR PAIN. I EVALUATED THE PATIENT AND REVIEWED THE CHART. I WENT OVER THE RISKS, ALTERNATIVES, AND BENEFITS ASSOCIATED WITH THIS PROCEDURE. THE PATIENT WOULD LIKE TO PROCEED AND GAVE CONSENT TO PERFORM THE PROCEDURE. THE PATIENT DENIES UNEXPLAINABLE WEIGHT LOSS, FEVER, CHILLS, OR NEW CHANGES IN URINARY OR BOWEL CONTROL. DESCRIPTION OF PROCEDURE THE PATIENT WAS BROUGHT TO THE PROCEDURE ROOM AND PLACED IN THE PRONE POSITION. THE THORACOLUMBAR AREA WAS CLEANED WITH CHLORAPREP SOLUTION AND DRAPED ASEPTICALLY. THE PROCEDURE WAS DONE UNDER STERILE CONDITIONS. I CHECKED LATERALITY AND THE LEVEL WHERE THE PROCEDURE WAS GOING TO BE PERFORMED WITH THE PATIENT AND THE SUPPORTING STAFF AT THE MOMENT OF THE TIME OUT IN THE PROCEDURE ROOM. UNDER FLUOROSCOPIC GUIDANCE, THE TARGET POINT WAS SELECTED AT THE BILATERAL T12-L1, L1-L2, AND L2-L3. TARGET POINT WAS SELECTED AFTER LATERAL ROTATION AND TILT OF THE MAGNIFIER OF THE C-ARM. LIDOCAINE 0.5% WAS USED TO NUMB THE SKIN AND THE SUBCUTANEOUS TISSUE BELOW IT. SPINAL NEEDLES, 22-GAUGE, WERE ADVANCED UNDER FLUOROSCOPIC GUIDANCE AND FOLLOWING PATIENT FEEDBACK UNTIL THE TARGETS WERE TOUCHED. THE POSITION OF THE NEEDLES WAS VERIFIED WITH AP AND LATERAL VIEWS. AFTER PROPER POSITION OF THE NEEDLES WAS ACHIEVED, ISOVUE-M DYE 30% 0.1 ML WAS INJECTED SHOWING ADEQUATE SPREAD OF THE DYE. THEN A SOLUTION OF 0.9 ML OF BUPIVACAINE 0.125% OF KENALOG 10 MG WAS INJECTED AT EACH SITE. THERE WAS NO EVIDENCE OF BLOOD, PARESTHESIA OR CEREBROSPINAL FLUID DURING THE PROCEDURE. THE PATIENT WAS SENT TO THE RECOVERY ROOM. THE PATIENT WAS MOVING THE EXTREMITIES AND DOING WELL. THERE WAS NO COMPLICATION DURING THE PROCEDURE. FLUOROSCOPY TIME WAS 11 SECONDS. POST PROCEDURE NOTE THE PATIENT WILL BE SEEN IN A FOLLOW UP IN THE NEXT FEW WEEKS. INSTRUCTIONS WERE GIVEN, QUESTIONS WERE ANSWERED, AND THE PATIENT EXPRESSED UNDERSTANDING AND AGREED WITH THE PLAN. I, FINESSE PHILLIPS, DOCUMENTED THE ABOVE INFORMATION ACTING A SCRIBE FOR DR. REYNA. I HAVE REVIEWED THE ABOVE DOCUMENT, WRITTEN BY FINESSE SALAS AND I VERIFY THAT IT IS ACCURATE. DIAGNOSTIC IMAGING [facility] FACET BLOCK (PAIN)[id number] PROCEDURE CODES 29101 INJ PARAVERT F JNT C/T 1 LEV, MODIFIERS: 50 [id number] INJ PARAVERT F JNT L/S 1 LEV, MODIFIERS: 50 32340 INJ PARAVERT F JNT L/S 2 LEV, MODIFIERS: 50 [id number] RADXPS IN END [id number] PXD DISPOSITION & COMMUNICATION FOLLOW UP 3 WEEKS ELECTRONICALLY SIGNED BY CHICO REYNA MD, ON 12/30/2018 AT 01:27 PM EST DISCLAIMER : THIS IS A VISIT SUMMARY EXTRACTED FROM THE [employer] CHART. IT IS NOT A COPY OF THE [employer] PROGRESS NOTE. MTDD
== END ==
LOC: M PAIN 13:45
PROVIDERS: ATTEND Anesthesiology
DX: M47.815 Spondylosis without myelopathy or radiculopathy, thoracolumbar region (principal); M47.816 Spondylosis without myelopathy or radiculopathy, lumbar region; E11.9 Type 2 diabetes mellitus without complications; Z79.82 Long term (current) use of aspirin; Z79.84 Long term (current) use of oral hypoglycemic drugs; Z79.899 Other long term (current) drug therapy; Z87.891 Personal history of nicotine dependence; Z88.2 Allergy status to sulfonamides; Z88.1 Allergy status to other antibiotic agents; Z88.8 Allergy status to other drugs, medicaments and biological substances; Z91.048 Other nonmedicinal substance allergy status
CPT/HCPCS: 64490; 64493; 64494; J3301; Q9967

== ENCOUNTER → 2019-01-02 | Outpatient (CLI) | payer BC, MEDICARE ==
--- NOTE | 2019-01-06 04:33 | ECWPNPC ---
PATIENT NAME: CARMELA LALA : 1960 GENDER: FEMALE VISIT DATE: 01/02/2019 DISCHARGE DATE: 01/02/19 1353 VISIT LOCKED DATE TIME: PHYSICIAN: GALLITO KEBEDE RESOURCE: GALLITO KEBEDE REASON FOR APPOINTMENT 1. POST PROC HISTORY OF PRESENT ILLNESS HISTORY OF PRESENT ILLNESS: PAIN THE PATIENT DESCRIBES THE PAIN... 58-YEAR-OLD FEMALE IN FOR POST FACET BLOCK FOLLOW-UP. SHE RATES HER PAIN PREPROCEDURE AT AN 8 OUT OF 10 AND POSTPROCEDURE AT A 3 OUT OF 10. SHE FEELS THE PROCEDURE WORKED WELL OVERALL CONTINUES TO DO SO TODAY. SHE RATES HER PAIN CURRENTLY AT A 3 OUT OF 10 AND DESCRIBES IT ACHING, SHARP, BURNING, SORE, AND TENDER. FALL RISK SCREENING: SCREENING :NO FALLS REPORTED IN THE LAST YEAR CURRENT MEDICATIONS TAKING CARVEDILOL 12.5 MG TABLET ORALLY TWICE DAILY TAKING LYRICA 100 MG CAPSULE 1 CAPSULE ORALLY THREE TIMES DAILY TAKING PRIMIDONE 250 MG TABLET 1 TABLET ORALLY TWICE DAILY TAKING TORSEMIDE 20 MG TABLET 2 ORALLY ONCE DAILY TAKING ASPIRIN ADULT LOW DOSE 81 MG TABLET DELAYED RELEASE 1 TABLET ORALLY ONCE A DAY TAKING VITAMIN D3 50 MCG (2000 UT) TABLET CHEWABLE 2 GUMMIES ORALLY DAILY TAKING ASPERCREME 10 % LOTION EXTERNALLY NEEDED TAKING SPIRONOLACTONE 25 MG TABLET 1 TABLET ORALLY DAILY TAKING ACETAMINOPHEN 325 MG TABLET 1 TABLET NEEDED ORALLY EVERY 4 HRS, NOTES: NONE RECENT TAKING METFORMIN HCL 1000 MG TABLET 5 ML WITH A MEAL ORALLY BID TAKING TRAMADOL HCL 50 MG TABLET SOLUBLE DIRECTED ORALLY , NOTES: NONE RECENT TAKING POTASSIUM CHLORIDE 10 MEQ CAPSULE EXTENDED RELEASE 1 CAPSULE WITH FOOD ORALLY TWICE A DAY, NOTES: 12/17 0630 UNKNOWN MIRALAX SUSPENSION 17 GRAMS ORALLY AT HOUR OF SLEEP NEEDED, NOTES: NONE RECENTLY MEDICATION LIST REVIEWED AND RECONCILED WITH THE PATIENT PAST MEDICAL HISTORY BLADDER WALL THICKENING BLOOD CLOT ON RIGHT OVARY LOW BACK PAIN CARPAL TUNNEL LEFT AND LEFT ELBOW PAIN AORTIC STENOSIS AND HEART MURMUR BICUSPID, AORTIC VALVE LOW POTASSIUM NEW DX ODF DEPPRESSION NIDDM SPONDYLOSIS OF CERVICAL REGION THORACIC PAIN ALLERGIES NEOMYCIN SULFATE: RASH - ALLERGY ADHESIVE TAPE: RASH - ALLERGY BACITRACIN: RASH - ALLERGY FLOURACINE EYE DROPS: BURNING,ITCHY AND SWOLLEN EYES - ALLERGY SURGICAL HISTORY CARPAL TUNNEL ON ELBOW LEFT 02/2015 VAGINAL HYSTER 12/2012 KNEE ARTHROSCOPY-LEFT 09/2007 ACOUSTIC NEUROMA 08/1995 ENDOMETRIOSIS LAPROSCOPY 10/1991 LEFT EAR OPERATION 12/1989 GALL BLADDER 01/1985 OPEN ZAIDA FUNDOPLICATION 01/01/2017 APPENDECTOMY/ CYST REMOVED RIGHT OVARY 1974 LEFT CARPEL TUNNEL ELBOW AND HAND FAMILY HISTORY FATHER: , DIAGNOSED WITH HYPERTENSION, UNSPECIFIED HEART DISEASE, OTHER MALIGNANT NEOPLASM OF UNSPECIFIED SITE MOTHER: , DIABETES, UNSPECIFIED HEART DISEASE, UNSPECIFIED CEREBRAL ARTERY OCCLUSION WITH CEREBRAL INFARCTION 2DAUGHTER(S) - HEALTHY. DAD-PROSTATE AND LUNG CADAUGHTER - BIPOLARDAUGHTER - HIGH CALCIUMBROGTHER DIALYSIS, IDDM. HOSPITALIZATION/MAJOR DIAGNOSTIC PROCEDURE CHESTPAIN R/O HI 2012 SURGERIES REVIEW OF SYSTEMS REVIEWED BY: PROVIDER: MARIVEL KEBEDE CALIBRATION TESTER-C . CONSTITUTIONAL: ANY CHANGE IN YOUR MEDICAL CONDITION? NO . CHILLS NO . FEVER NO . INFECTION: DO YOU HAVE NEW INFECTIONS? NO . DO YOU HAVE HISTORY OF MRSA? NO . MUSCULOSKELETAL: ANY NEW PATTERNS OF PAIN OR NUMBNESS? NO . GASTROENTEROLOGY: ANY NEW CHANGE IN BOWEL CONTROL? NO . GENITOURINARY: ANY NEW CHANGE IN BLADDER CONTROL? NO . IS THERE A CHANCE YOU COULD BE ? NO . HEMATOLOGY/LYMPH: DO YOU TAKE ANY BLOOD THINNERS? (FOR EXAMPLE- COUMADIN, PLAVIX, AGGRENOX, PLATEL, PRADAXA, OR XARELTO) NO . WHEN WAS YOUR LAST DOSE? DATE: TIME: . NEUROLOGY: HAVE YOU FALLEN IN THE PAST 12 MONTHS? NO . ANY NEW EXTREMITY NUMBNESS OR WEAKNESS? NO . CARDIOLOGY: DO YOU HAVE A PACEMAKER OR DEFIBRILLATOR? NO . RESPIRATORY: HAVE YOU BEEN SICK IN THE PAST WEEK? NO . FEVER NO . FLU LIKE SYMPTOMS? NO . COUGH NO . INTEGUMENTARY: DO YOU HAVE ANY RASHES OR OPEN SORES? NO . ALLERGIC/IMMUNO: ARE YOU ALLERGIC TO IV DYE? NO . ANY NEW ALLERGIES? NO . PSYCHIATRIC: DO YOU HAVE THOUGHTS OF HURTING YOURSELF OR SOMEONE ELSE? NO . ARE YOU ABUSED, NEGLECTED, OR IN AN UNSAFE ENVIRONMENT? NO . ENDOCRINOLOGY: ARE YOU DIABETIC? NO . OTHER: DO YOU NEED ANY PRESCRIPTIONS? NO . IF YES, PLEASE LIST: ____ . ANY NEW PROBLEMS WITH YOUR MEDICATIONS? NO . WHEN DID YOU LAST EAT? ____ . WHEN DID YOU LAST DRINK? ____ . WHAT DID YOU LAST DRINK? ____ . NAME OF PERSON DRIVING YOU HOME? ____ . DO YOU HAVE ANY OTHER QUESTIONS OR CONCERNS NO . VITAL SIGNS WT 225.8 LBS, HT 66 IN, BMI 36.44 INDEX, BP 159/73 MM HG, HR 71 /MIN, RR 16 /MIN, TEMP 96.6 F, OXYGEN SAT % 93%, NA INITIALS SC 13:29. EXAMINATION GENERAL EXAMINATION: GENERALNO ACUTE DISTRESS, WELL NOURISHED AND HYDRATED. PSYCHAPPROPRIATE MOOD AND AFFECT . LUNGS:CLEAR TO AUSCULTATION BILATERALLY, NO WHEEZES, RHONCHI, RALES. HEART:NO MURMURS, REGULAR RATE AND RHYTHM. ASSESSMENTS SPONDYLOSIS WITHOUT MYELOPATHY OR RADICULOPATHY, LUMBAR REGION - M47.816 (PRIMARY) TREATMENT SPONDYLOSIS WITHOUT MYELOPATHY OR RADICULOPATHY, LUMBAR REGION CLINICAL NOTES: 58-YEAR-OLD FEMALE IN FOR POST FACET BLOCK FOLLOW-UP. GIVEN PRESENTING SYMPTOMS AND RESULTS OF PHYSICAL EXAMINATION RECOMMENDED FOLLOW-UP IN 4 MONTHS. PATIENT HAS EXPRESSED UNDERSTANDING OF AND WAS IN AGREEMENT WITH TREATMENT PLAN. GIVEN TIME TO ASK QUESTIONS AND EXPRESS CONCERNS. PROCEDURE CODES FA211 ESTABILISHED PATIENT [facility] FACILITY CHARGE DISPOSITION & COMMUNICATION FOLLOW UP 4 MONTHS (REASON: LOW BACK PAIN) ELECTRONICALLY SIGNED BY LANA DONAHUE ON 01/05/2019 AT 09:04 AM EST DISCLAIMER : THIS IS A VISIT SUMMARY EXTRACTED FROM THE [employer] CHART. IT IS NOT A COPY OF THE [employer] PROGRESS NOTE. GABRIEL
== END ==
LOC: M PAIN 13:30
PROVIDERS: ATTEND Family Medicine
DX: M47.816 Spondylosis without myelopathy or radiculopathy, lumbar region (principal)

== ENCOUNTER → 2019-09-28 | Outpatient (CLI) | payer BC, MEDICARE | LOC: M PAIN 10:15 | PROVIDERS: ATTEND Family Medicine | DX: M47.816 Spondylosis without myelopathy or radiculopathy, lumbar region (principal) ==

== ENCOUNTER → 2019-10-29 | Outpatient (CLI) | payer BC, MEDICARE | LOC: M PAIN 11:15 | PROVIDERS: ATTEND Family Medicine | DX: M51.17 Intervertebral disc disorders with radiculopathy, lumbosacral region (principal); G89.29 Other chronic pain; E11.9 Type 2 diabetes mellitus without complications; Z88.1 Allergy status to other antibiotic agents; Z88.8 Allergy status to other drugs, medicaments and biological substances; Z79.82 Long term (current) use of aspirin; Z79.84 Long term (current) use of oral hypoglycemic drugs; Z79.891 Long term (current) use of opiate analgesic; Z79.899 Other long term (current) drug therapy ==

== ENCOUNTER → 2020-06-29 | Outpatient (CLI) | payer MEDICARE ==
[~2020-06-29] MED LIST changes: +ASPI81TA26 PO; -BUPIVACAINE HCL 0.25% 30 ML VIAL As Ordered ONE; +CARA1TAB6 PO; +CARV6.25 PO; +CIPR-249 PO; +D31000TA2 PO; +FLUT50SP33; +GAVICHW5 PO; +IRON1TAB2 PO; -ISOVUE-M 300 61% 15ML VIAL (Q9967) As Ordered ONE; -LIDOCAINE 1% SDV INJ 30 ML VIAL As Ordered ONE; +LYRI150C PO; +METF500T13 PO; +OMEP40CA97 PO; +PRIM250T8 PO; +SPIR-10 PO; +TORS20TA2 PO; -TRIAMCINOLONE ACETONIDE SUSP 40 MG/ML VIAL (J3301) As Ordered ONE; +WARF-58 PO; +WARF-60 PO; -diazePAM 5 MG TAB As Ordered ONE; -oxyCODONE 5MG TAB As Ordered ONE
== END ==
LOC: M LABSMTC 12:31
PROVIDERS: ATTEND Anesthesiology
DX: Z01.812 Encounter for preprocedural laboratory examination (principal); Z20.828 Contact with and (suspected) exposure to other viral communicable diseases

== ENCOUNTER 2020-07-04 08:39 | Day surgery (SDC) | payer OTHER, MEDICARE ==
[~2020-07-04] VITALS: Ht 167.6 cm; Wt 102.1 kg
[~2020-07-04 08:39] MED LIST changes: +NS 1,000 ML IV ONE
[2020-07-04] MEDS ORDERED: fentaNYL 100 MCG/2 ML INJECTION (J3010) As Ordered ONE (10:02)
[2020-07-04] MEDS ORDERED: LIDOCAINE 2% 100MG/5ML SDV (FOR ANES.) As Ordered ONE (10:02)
[2020-07-04] MEDS ORDERED: propofoL 500 MG/50 ML VIAL As Ordered ONE (10:02)
--- NOTE | 2020-07-04 10:20 | ROOR ---
Patient Name: Kylee Moore Procedure Date: 07/04/2020 10:05 AM Date of : 1960 Age: 60 Room: [facility] Gender: Female Note Status: Finalized Procedure: Upper GI endoscopy + Balloon Dilatation Indications: Dysphagia, Heartburn Providers: Norbert Kebede MD Referring MD: Cholo Chávez MD Requesting Provider: Medicines: Monitored Anesthesia Care Complications: No immediate complications. Procedure: Pre-Anesthesia Assessment: - The heart rate, respiratory rate, oxygen saturations, blood pressure, adequacy of pulmonary ventilation, and response to care were monitored throughout the procedure. The Endoscope was introduced through the mouth, and advanced to the second part of duodenum. The upper GI endoscopy was accomplished without difficulty. The patient tolerated the procedure well. Findings: The Z-line was irregular and was found 40 cm from the incisors. Evidence of a Iman fundoplication was found at the gastroesophageal junction. The wrap appeared intact. This was traversed after dilation. No other significant abnormalities were identified in a careful examination of the stomach. The exam of the duodenum was otherwise normal. Impression: - Z-line irregular, 40 cm from the incisors. - A Iman fundoplication was found. The wrap appears intact. - No specimens collected. - The examination was otherwise normal. Recommendation: - Patient has a contact number available for emergencies. The signs and symptoms of potential delayed complications were discussed with the patient. Return to normal activities tomorrow. Written discharge instructions were provided to the patient. - High fiber diet. - Discharge patient to home. - Follow an antireflux regimen. - Continue present medications. - Return to referring physician. - The findings and recommendations were discussed with the patient's family. Procedure Code(s): --- Professional --- 58922, Esophagogastroduodenoscopy, flexible, transoral; diagnostic, including collection of specimen(s) by brushing or washing, when performed (separate procedure) Diagnosis Code(s): --- Professional --- K22.8, Other specified diseases of esophagus Z98.890, Other specified postprocedural states R13.10, Dysphagia, unspecified R12, Heartburn CPT copyright 2019 [employer]. All rights reserved. The codes documented in this report are preliminary and upon alberene stone setter review may be revised to meet current compliance requirements. Norbert Kebede MD Norbert Kebede MD 07/04/2020 10:20:02 AM Electronically signed by Norbert Kebede MD Number of Addenda: 0 Note Initiated On: 07/04/2020 10:05 AM Estimated Blood Loss: Estimated blood loss: none.
--- NOTE | 2020-07-04 10:39 | ROOR ---
Patient Name: Kylee Moore Procedure Date: 07/04/2020 10:06 AM Date of : 1960 Age: 60 Room: [id number] Gender: Female Note Status: Finalized Procedure: Total Colonoscopy to Cecum + Bx. To r/o Microscopic Colitis Indications: Change in bowel habits Providers: Norbert Kebede MD Referring MD: Cholo Chávez MD Requesting Provider: Medicines: Monitored Anesthesia Care Complications: No immediate complications. Procedure: Pre-Anesthesia Assessment: - The heart rate, respiratory rate, oxygen saturations, blood pressure, adequacy of pulmonary ventilation, and response to care were monitored throughout the procedure. The Colonoscope was introduced through the anus and advanced to the cecum, identified by appendiceal orifice and ileocecal valve. The colonoscopy was performed without difficulty. The patient tolerated the procedure well. The quality of the bowel preparation was excellent. Findings: The perianal and digital rectal examinations were normal. Non-bleeding internal hemorrhoids were found during retroflexion. The hemorrhoids were small and Grade I (internal hemorrhoids that do not prolapse). No other significant abnormalities were identified in a careful examination of the remainder of the colon. Biopsies for histology were taken with a cold forceps from the ascending colon, transverse colon and descending colon for evaluation of microscopic colitis. The exam was otherwise without abnormality on direct and retroflexion views. A single (solitary) ulcer was found in the proximal ascending colon. No bleeding was present. Impression: - Non-bleeding internal hemorrhoids. - The examination was otherwise normal on direct and retroflexion views. - A single (solitary) ulcer in the proximal ascending colon. - Biopsies were taken with a cold forceps from the ascending colon, transverse colon and descending colon for evaluation of microscopic colitis. - The exam was otherwise normal to the cecum. Recommendation: - Patient has a contact number available for emergencies. The signs and symptoms of potential delayed complications were discussed with the patient. Return to normal activities tomorrow. Written discharge instructions were provided to the patient. - High fiber diet. - Discharge patient to home. - Continue present medications. - Await pathology results. - Telephone GI clinic for pathology results in 1 week. - Repeat colonoscopy in 10 years for screening purposes. - Return to referring physician. - The findings and recommendations were discussed with the patient's family. - Resume Coumadin (warfarin) at prior dose today. Procedure Code(s): --- Professional --- 45917, Colonoscopy, flexible; with biopsy, single or multiple Diagnosis Code(s): --- Professional --- K64.0, First degree hemorrhoids K63.3, Ulcer of intestine R19.4, Change in bowel habit CPT copyright 2019 [employer]. All rights reserved. The codes documented in this report are preliminary and upon conveyor loader review may be revised to meet current compliance requirements. Norbert Kebede MD Norbert Kebede MD 07/04/2020 10:38:56 AM Electronically signed by Norbert Kebede MD Number of Addenda: 0 Note Initiated On: 07/04/2020 10:06 AM Estimated Blood Loss: Estimated blood loss: none.
[2020-07-04 10:57] VITALS: BP 143/67
== END 2020-07-04 10:59 | disposition home or self-care (01) ==
LOC: M OPP 08:39
PROVIDERS: ATTEND Internal Medicine Gastroenterology
DX: K63.3 Ulcer of intestine (principal); K64.0 First degree hemorrhoids; R19.4 Change in bowel habit; K22.8 Other specified diseases of esophagus; Z98.890 Other specified postprocedural states; R13.10 Dysphagia, unspecified; R12 Heartburn; Z79.01 Long term (current) use of anticoagulants; Z79.82 Long term (current) use of aspirin; Z79.84 Long term (current) use of oral hypoglycemic drugs; Z79.899 Other long term (current) drug therapy
CPT/HCPCS: 43235; 45380; 88305; J3010

== ENCOUNTER → 2020-12-08 | Outpatient (CLI) | payer OTHER, MEDICARE ==
[~2020-12-08] MED LIST changes: -NS 1,000 ML IV ONE; +OMEP40CA4 PO; -OMEP40CA97 PO
== END ==
LOC: M PAIN 11:15
PROVIDERS: ATTEND Anesthesiology
DX: M53.3 Sacrococcygeal disorders, not elsewhere classified (principal); E11.9 Type 2 diabetes mellitus without complications; E55.9 Vitamin D deficiency, unspecified; J44.9 Chronic obstructive pulmonary disease, unspecified; Z87.891 Personal history of nicotine dependence; Z88.1 Allergy status to other antibiotic agents; Z88.8 Allergy status to other drugs, medicaments and biological substances; Z91.09 Other allergy status, other than to drugs and biological substances; E66.01 Morbid (severe) obesity due to excess calories; Z68.41 Body mass index [BMI] 40.0-44.9, adult; Z79.01 Long term (current) use of anticoagulants; Z79.51 Long term (current) use of inhaled steroids; Z79.82 Long term (current) use of aspirin; Z79.84 Long term (current) use of oral hypoglycemic drugs; Z79.891 Long term (current) use of opiate analgesic; Z79.899 Other long term (current) drug therapy

== ENCOUNTER → 2021-05-05 | Outpatient (REF) | payer OTHER, MEDICARE ==
[~2021-05-05] MED LIST changes: -D31000TA2 PO; +VITA100093 PO
[2021-05-05 18:02] LABS: CREATININE, URINE < 13.0 MG/DL; MALB URINE SIEMENS < 5.0 MG/L
== END ==
LOC: M LAB REF 16:48
PROVIDERS: ATTEND Nurse Practitioner Family
DX: E11.65 Type 2 diabetes mellitus with hyperglycemia (principal)

== ENCOUNTER → 2022-02-22 | Outpatient (CLI) | payer MEDICARE, OTHER ==
[~2022-02-22] MED LIST changes: +ISOVUE-370 76% 100ML VIAL As Ordered ONE
== END ==
LOC: M RAD 13:17
PROVIDERS: ATTEND Otolaryngology
DX: H92.22 Otorrhagia, left ear (principal); H92.02 Otalgia, left ear; Z98.890 Other specified postprocedural states
CPT/HCPCS: 70481; Q9967

== ENCOUNTER → 2022-03-08 | Outpatient (CLI) | payer OTHER, MEDICARE ==
[~2022-03-08] MED LIST changes: -ISOVUE-370 76% 100ML VIAL As Ordered ONE
== END ==
LOC: M LABSMTC 10:24
PROVIDERS: ATTEND Anesthesiology
DX: Z01.818 Encounter for other preprocedural examination (principal)

== ENCOUNTER → 2022-03-13 | Outpatient (CLI) | payer MEDICARE, OTHER ==
[~2022-03-13] MED LIST changes: +BUPIVACAINE HCL 0.25% 30ML VIAL As Ordered ONE; +ISOVUE-M 300 61% 15ML VIAL As Ordered ONE; +LIDOCAINE 1% SDV 30ML VIAL As Ordered ONE; +TRIAMCINOLONE ACETONIDE SUSP 40MG/ML 1ML VIAL As Ordered ONE; +diazePAM 5MG TABLET As Ordered ONE; +oxyCODONE 5MG TAB As Ordered ONE
[2022-03-13 12:44] LABS: INR 1.02; PROTHROMBIN TIME 13.6 SECONDS (12.5-14.5)
== END ==
LOC: M PAIN 11:00
PROVIDERS: ATTEND Anesthesiology
DX: M46.08 Spinal enthesopathy, sacral and sacrococcygeal region (principal); E11.9 Type 2 diabetes mellitus without complications; G47.30 Sleep apnea, unspecified; E55.9 Vitamin D deficiency, unspecified; J44.9 Chronic obstructive pulmonary disease, unspecified; Z87.891 Personal history of nicotine dependence; Z88.1 Allergy status to other antibiotic agents; Z88.8 Allergy status to other drugs, medicaments and biological substances; Z91.09 Other allergy status, other than to drugs and biological substances; Z79.01 Long term (current) use of anticoagulants; Z79.51 Long term (current) use of inhaled steroids; Z79.82 Long term (current) use of aspirin; Z79.84 Long term (current) use of oral hypoglycemic drugs; Z79.85 Long-term (current) use of injectable non-insulin antidiabetic drugs; Z79.899 Other long term (current) drug therapy
CPT/HCPCS: 20550; 36415; 77002; 85610; Q9967

== ENCOUNTER → 2022-04-04 | Outpatient (CLI) | payer MEDICARE ==
[~2022-04-04] MED LIST changes: -BUPIVACAINE HCL 0.25% 30ML VIAL As Ordered ONE; -ISOVUE-M 300 61% 15ML VIAL As Ordered ONE; -LIDOCAINE 1% SDV 30ML VIAL As Ordered ONE; -TRIAMCINOLONE ACETONIDE SUSP 40MG/ML 1ML VIAL As Ordered ONE; -diazePAM 5MG TABLET As Ordered ONE; -oxyCODONE 5MG TAB As Ordered ONE
== END ==
LOC: M LABSMTC 10:46
PROVIDERS: ATTEND Physical Medicine & Rehabilitation Pain Medicine
DX: Z01.812 Encounter for preprocedural laboratory examination (principal)

== ENCOUNTER → 2022-04-25 | Outpatient (CLI) | payer MEDICARE, OTHER | LOC: M PAIN 11:15 | PROVIDERS: ATTEND Anesthesiology | DX: G89.29 Other chronic pain (principal); M54.50 Low back pain, unspecified; M53.3 Sacrococcygeal disorders, not elsewhere classified; M51.9 Unspecified thoracic, thoracolumbar and lumbosacral intervertebral disc disorder; E11.9 Type 2 diabetes mellitus without complications; E55.9 Vitamin D deficiency, unspecified; J44.9 Chronic obstructive pulmonary disease, unspecified; Z86.59 Personal history of other mental and behavioral disorders; Z87.891 Personal history of nicotine dependence; Z88.1 Allergy status to other antibiotic agents; Z88.8 Allergy status to other drugs, medicaments and biological substances; Z91.09 Other allergy status, other than to drugs and biological substances; Z79.01 Long term (current) use of anticoagulants; Z79.51 Long term (current) use of inhaled steroids; Z79.82 Long term (current) use of aspirin; Z79.84 Long term (current) use of oral hypoglycemic drugs; Z79.899 Other long term (current) drug therapy ==

== ENCOUNTER → 2022-05-23 | Outpatient (CLI) | payer MEDICARE, OTHER | LOC: M PAIN 15:30 | PROVIDERS: ATTEND Anesthesiology | DX: R10.2 Pelvic and perineal pain (principal); E11.9 Type 2 diabetes mellitus without complications; E55.9 Vitamin D deficiency, unspecified; J44.9 Chronic obstructive pulmonary disease, unspecified; Z87.891 Personal history of nicotine dependence; Z88.1 Allergy status to other antibiotic agents; Z88.8 Allergy status to other drugs, medicaments and biological substances; Z91.09 Other allergy status, other than to drugs and biological substances; Z79.51 Long term (current) use of inhaled steroids; Z79.82 Long term (current) use of aspirin; Z79.84 Long term (current) use of oral hypoglycemic drugs; Z79.85 Long-term (current) use of injectable non-insulin antidiabetic drugs; Z79.899 Other long term (current) drug therapy ==

== ENCOUNTER → 2022-06-07 | Outpatient (CLI) | payer MEDICARE, OTHER | LOC: M PAIN 13:45 | PROVIDERS: ATTEND Nurse Practitioner Family | DX: M46.1 Sacroiliitis, not elsewhere classified (principal); G89.29 Other chronic pain; E11.9 Type 2 diabetes mellitus without complications; E55.9 Vitamin D deficiency, unspecified; J44.9 Chronic obstructive pulmonary disease, unspecified; Z86.59 Personal history of other mental and behavioral disorders; Z86.73 Personal history of transient ischemic attack (TIA), and cerebral infarction without residual deficits; Z87.891 Personal history of nicotine dependence; Z88.1 Allergy status to other antibiotic agents; Z88.8 Allergy status to other drugs, medicaments and biological substances; Z91.09 Other allergy status, other than to drugs and biological substances; Z79.01 Long term (current) use of anticoagulants; Z79.51 Long term (current) use of inhaled steroids; Z79.82 Long term (current) use of aspirin; Z79.84 Long term (current) use of oral hypoglycemic drugs; Z79.85 Long-term (current) use of injectable non-insulin antidiabetic drugs; Z79.899 Other long term (current) drug therapy ==

== ENCOUNTER → 2022-08-06 | Outpatient (CLI) | payer MEDICARE, OTHER | LOC: M PAIN 14:30 | PROVIDERS: ATTEND Anesthesiology | DX: M53.3 Sacrococcygeal disorders, not elsewhere classified (principal); G89.29 Other chronic pain; E11.9 Type 2 diabetes mellitus without complications; E55.9 Vitamin D deficiency, unspecified; J44.9 Chronic obstructive pulmonary disease, unspecified; Z87.891 Personal history of nicotine dependence; Z88.1 Allergy status to other antibiotic agents; Z88.8 Allergy status to other drugs, medicaments and biological substances; Z91.09 Other allergy status, other than to drugs and biological substances; Z79.51 Long term (current) use of inhaled steroids; Z79.82 Long term (current) use of aspirin; Z79.84 Long term (current) use of oral hypoglycemic drugs; Z79.85 Long-term (current) use of injectable non-insulin antidiabetic drugs; Z79.899 Other long term (current) drug therapy ==

== ENCOUNTER → 2022-10-05 | Outpatient (CLI) | payer MEDICARE, OTHER | LOC: M PAIN 10:00 | PROVIDERS: ATTEND Nurse Practitioner Family | DX: M46.1 Sacroiliitis, not elsewhere classified (principal); G89.29 Other chronic pain; E11.9 Type 2 diabetes mellitus without complications; G47.30 Sleep apnea, unspecified; E55.9 Vitamin D deficiency, unspecified; J44.9 Chronic obstructive pulmonary disease, unspecified; Z86.59 Personal history of other mental and behavioral disorders; Z87.891 Personal history of nicotine dependence; Z88.1 Allergy status to other antibiotic agents; Z88.8 Allergy status to other drugs, medicaments and biological substances; Z91.09 Other allergy status, other than to drugs and biological substances; Z79.01 Long term (current) use of anticoagulants; Z79.82 Long term (current) use of aspirin; Z79.84 Long term (current) use of oral hypoglycemic drugs; Z79.85 Long-term (current) use of injectable non-insulin antidiabetic drugs; Z79.899 Other long term (current) drug therapy ==

== ENCOUNTER → 2022-11-26 | Outpatient (CLI) | payer MEDICARE, OTHER | LOC: M PAIN 10:15 | PROVIDERS: ATTEND Nurse Practitioner Family | DX: M46.1 Sacroiliitis, not elsewhere classified (principal); G89.29 Other chronic pain; E11.9 Type 2 diabetes mellitus without complications; Z80.8 Family history of malignant neoplasm of other organs or systems; Z80.1 Family history of malignant neoplasm of trachea, bronchus and lung; Z80.42 Family history of malignant neoplasm of prostate; Z87.891 Personal history of nicotine dependence; Z88.1 Allergy status to other antibiotic agents; Z88.8 Allergy status to other drugs, medicaments and biological substances; Z91.09 Other allergy status, other than to drugs and biological substances; Z79.01 Long term (current) use of anticoagulants; Z79.82 Long term (current) use of aspirin; Z79.84 Long term (current) use of oral hypoglycemic drugs; Z79.85 Long-term (current) use of injectable non-insulin antidiabetic drugs; Z79.899 Other long term (current) drug therapy ==

== ENCOUNTER → 2022-12-20 | Outpatient (REF) | payer MEDICARE, OTHER ==
[2022-12-20 18:55] LABS: CREATININE, URINE 69.4 MG/DL
[2022-12-20 18:56] LABS: MAU/CREAT RATIO 5.7 MCG/MG (0.0-30.0)
== END ==
LOC: M LAB REF 17:36
PROVIDERS: ATTEND Nurse Practitioner Family
DX: E11.65 Type 2 diabetes mellitus with hyperglycemia (principal)

== ENCOUNTER → 2023-02-08 | Outpatient (CLI) | payer MEDICARE, OTHER | LOC: M SOG 13:24 | PROVIDERS: ATTEND Orthopaedic Surgery Hand Surgery | DX: M79.641 Pain in right hand (principal); M19.041 Primary osteoarthritis, right hand ==

== ENCOUNTER → 2023-02-22 | Outpatient (CLI) | payer MEDICARE, MEDICAID | LOC: M PAIN 15:30 | PROVIDERS: ATTEND Anesthesiology | DX: M46.08 Spinal enthesopathy, sacral and sacrococcygeal region (principal); M53.3 Sacrococcygeal disorders, not elsewhere classified; M54.50 Low back pain, unspecified; R10.2 Pelvic and perineal pain; E11.9 Type 2 diabetes mellitus without complications; M47.812 Spondylosis without myelopathy or radiculopathy, cervical region; M17.11 Unilateral primary osteoarthritis, right knee; M54.6 Pain in thoracic spine; J44.9 Chronic obstructive pulmonary disease, unspecified; Z87.891 Personal history of nicotine dependence; Z79.01 Long term (current) use of anticoagulants; Z79.82 Long term (current) use of aspirin; Z79.84 Long term (current) use of oral hypoglycemic drugs; Z79.899 Other long term (current) drug therapy; Z88.8 Allergy status to other drugs, medicaments and biological substances; Z91.048 Other nonmedicinal substance allergy status ==

== ENCOUNTER 2023-03-18 07:10 | Day surgery (SDC) | payer MEDICARE ==
[~2023-03-18] VITALS: Ht 165.1 cm; Wt 100.3 kg
[~2023-03-18 07:10] MED LIST changes: +BISO10TA14 PO; +BREO1INH INH; +FARX1TAB3 PO; +PROA1AER2 IN; +TRUL0.5I SC
[2023-03-18] MEDS ORDERED: ENOX100I3 SC (07:58)
[2023-03-18] MEDS: LR 1,000 ML IV SCH (08:18)
[2023-03-18] MEDS ORDERED: fentaNYL 100 MCG/2 ML INJECTION As Ordered ONE (08:41)
[2023-03-18] MEDS ORDERED: LIDOCAINE 2% 100MG/5ML SDV (FOR ANES.) As Ordered ONE (08:42)
[2023-03-18] MEDS ORDERED: propofoL 200 MG/20 ML VIAL As Ordered ONE (08:42)
[2023-03-18] MEDS ORDERED: MIDAZOLAM INJ 2MG/2ML VIAL As Ordered ONE (08:42)
[2023-03-18] MEDS ORDERED: BACITRACIN OINTMENT 30GM TUBE As Ordered ONE (08:46)
[2023-03-18] MEDS: CLINDAMYCIN 900 MG in IV 1 EA IV ONE (09:02)
[2023-03-18] MEDS ORDERED: PERC5TAB12 PO (10:14)
[2023-03-18] MEDS ORDERED: LR 1,000 ML IV SCH (10:15)
[2023-03-18] MEDS ORDERED: fentaNYL 100 MCG/2 ML INJECTION IV PRN (10:15)
[2023-03-18] MEDS ORDERED: ONDANSETRON 4MG 2ML VIAL IV PRN (10:15)
[2023-03-18] MEDS: oxyCODONE 5MG TAB PO PRN (10:49)
[2023-03-18] MEDS: HYDROMORPHONE HCL 0.5 MG/ 0.5 ML SYRINGE IV PRN (10:50)
[2023-03-18 12:05] VITALS: BP 141/78; TEMP 97.4; O2SAT 97
== END 2023-03-18 12:20 | disposition home or self-care (01) ==
LOC: M SDC 07:10
PROVIDERS: ATTEND Orthopaedic Surgery Hand Surgery
DX: M24.041 Loose body in right finger joint(s) (principal); E11.9 Type 2 diabetes mellitus without complications; I10 Essential (primary) hypertension; K76.0 Fatty (change of) liver, not elsewhere classified; J45.909 Unspecified asthma, uncomplicated; Z79.82 Long term (current) use of aspirin; Z79.01 Long term (current) use of anticoagulants; Z79.899 Other long term (current) drug therapy; Z79.85 Long-term (current) use of injectable non-insulin antidiabetic drugs; Z79.84 Long term (current) use of oral hypoglycemic drugs; Z95.2 Presence of prosthetic heart valve; G47.30 Sleep apnea, unspecified; Z90.710 Acquired absence of both cervix and uterus; Z88.1 Allergy status to other antibiotic agents; Z88.8 Allergy status to other drugs, medicaments and biological substances
CPT/HCPCS: 26080; 88305; J0665; J0737; J1170; J2250; J3010

== ENCOUNTER → 2023-04-29 | Outpatient (CLI) | payer MEDICARE ==
[~2023-04-29] MED LIST changes: +ENOX100I3 SC; +PERC5TAB12 PO
== END ==
LOC: M SOG 13:07
PROVIDERS: ATTEND Physician Assistant
DX: M79.641 Pain in right hand (principal); M19.041 Primary osteoarthritis, right hand

== ENCOUNTER 2023-05-13 08:10 | Outpatient (CLI) | payer MEDICARE ==
[~2023-05-13] VITALS: Ht 165.1 cm; Wt 98.6 kg
[2023-05-13 08:25] VITALS: BP 138/65; O2SAT 98
[2023-05-13] MEDS: IRON SUCROSE 200 MG in NS 100 ML OVER 1 HR IV ONE (08:54)
[2023-05-13 10:15] VITALS: BP 136/64; O2SAT 99
== END 2023-05-13 10:15 | disposition home or self-care (01) ==
LOC: M INFU 08:10
PROVIDERS: ATTEND Internal Medicine Hematology & Oncology
DX: D50.9 Iron deficiency anemia, unspecified (principal); Z88.1 Allergy status to other antibiotic agents; Z88.8 Allergy status to other drugs, medicaments and biological substances
CPT/HCPCS: 96365; J1756

== ENCOUNTER 2023-05-22 12:00 | Outpatient (CLI) | payer MEDICARE ==
[2023-05-22 12:00] VITALS: BP 113/53; O2SAT 96
[2023-05-22] MEDS: IRON SUCROSE 200 MG in NS 100 ML OVER 1 HR IV ONE (12:04)
[2023-05-22 13:00] VITALS: BP 137/62; O2SAT 97
== END 2023-05-22 14:45 ==
LOC: M INFU 12:00
PROVIDERS: ATTEND Internal Medicine Hematology & Oncology
DX: D50.9 Iron deficiency anemia, unspecified (principal); Z88.1 Allergy status to other antibiotic agents; Z88.8 Allergy status to other drugs, medicaments and biological substances
CPT/HCPCS: 96365; J1756

== ENCOUNTER 2023-05-27 10:35 | Outpatient (CLI) | payer MEDICARE ==
[~2023-05-27] VITALS: Ht 165.1 cm; Wt 98.6 kg
[2023-05-27] MEDS: IRON SUCROSE 200 MG in NS 100 ML OVER 1 HR IV ONE (10:57)
[2023-05-27 12:04] VITALS: BP 130/60; O2SAT 98
== END 2023-05-27 12:05 ==
LOC: M INFU 10:35
PROVIDERS: ATTEND Internal Medicine Hematology & Oncology
DX: D50.9 Iron deficiency anemia, unspecified (principal); Z88.1 Allergy status to other antibiotic agents; Z88.8 Allergy status to other drugs, medicaments and biological substances
CPT/HCPCS: 96365; J1756

== ENCOUNTER 2023-06-03 09:30 | Outpatient (CLI) | payer MEDICARE ==
[2023-06-03 08:40] VITALS: BP 179/74; O2SAT 91
[2023-06-03 09:30] VITALS: BP 128/60; O2SAT 97
[2023-06-03] MEDS: IRON SUCROSE 200 MG in NS 100 ML OVER 1 HR IV ONE (09:34)
[2023-06-03 10:44] VITALS: BP 114/73; O2SAT 97
== END 2023-06-03 10:44 ==
LOC: M INFU 09:30
PROVIDERS: ATTEND Internal Medicine Hematology & Oncology
DX: D50.9 Iron deficiency anemia, unspecified (principal); Z88.1 Allergy status to other antibiotic agents; Z88.8 Allergy status to other drugs, medicaments and biological substances
CPT/HCPCS: 96365; J1756

== ENCOUNTER 2023-06-10 09:30 | Outpatient (CLI) | payer MEDICARE ==
[~2023-06-10] VITALS: Ht 165.1 cm; Wt 98.6 kg
[2023-06-10 09:30] VITALS: BP 130/59; O2SAT 97
[2023-06-10] MEDS: IRON SUCROSE 200 MG in NS 100 ML OVER 1 HR IV ONE (09:40)
[2023-06-10 10:44] VITALS: BP 116/58; O2SAT 96
== END 2023-06-10 10:45 ==
LOC: M INFU 09:30
PROVIDERS: ATTEND Internal Medicine Hematology & Oncology
DX: D50.9 Iron deficiency anemia, unspecified (principal); Z88.1 Allergy status to other antibiotic agents; Z88.5 Allergy status to narcotic agent
CPT/HCPCS: 96365; J1756

== ENCOUNTER → 2023-06-14 | Outpatient (CLI) | payer MEDICARE, OTHER ==
[~2023-06-14] MED LIST changes: +ISOVUE-M 300 61% 15ML VIAL As Ordered ONE; +LIDOCAINE 1% SDV 30ML VIAL As Ordered ONE; +TRIAMCINOLONE ACETONIDE SUSP 40MG/ML 1ML VIAL As Ordered ONE; +diazePAM 5MG TABLET As Ordered ONE; +oxyCODONE 5MG TAB As Ordered ONE
== END ==
LOC: M PAIN 08:30
PROVIDERS: ATTEND Anesthesiology
DX: M53.3 Sacrococcygeal disorders, not elsewhere classified (principal); G89.29 Other chronic pain; M54.50 Low back pain, unspecified; E87.6 Hypokalemia; E11.9 Type 2 diabetes mellitus without complications; M47.812 Spondylosis without myelopathy or radiculopathy, cervical region; E55.9 Vitamin D deficiency, unspecified; M17.11 Unilateral primary osteoarthritis, right knee; J44.9 Chronic obstructive pulmonary disease, unspecified; G25.0 Essential tremor; Z87.891 Personal history of nicotine dependence; Z79.01 Long term (current) use of anticoagulants; Z79.84 Long term (current) use of oral hypoglycemic drugs; Z79.899 Other long term (current) drug therapy; Z88.8 Allergy status to other drugs, medicaments and biological substances
CPT/HCPCS: G0260; J0665; J3301; Q9967

== ENCOUNTER → 2023-07-15 | Outpatient (CLI) | payer MEDICARE ==
[~2023-07-15] MED LIST changes: +D3 U5000 PO; +FARX1TAB5 PO; +HYDR-4571; -ISOVUE-M 300 61% 15ML VIAL As Ordered ONE; -LIDOCAINE 1% SDV 30ML VIAL As Ordered ONE; +PREG150C2 PO; +TAMS1CAP17 PO; -TRIAMCINOLONE ACETONIDE SUSP 40MG/ML 1ML VIAL As Ordered ONE; -diazePAM 5MG TABLET As Ordered ONE; -oxyCODONE 5MG TAB As Ordered ONE
== END ==
LOC: M PAIN 15:30
PROVIDERS: ATTEND Nurse Practitioner Family
DX: M46.08 Spinal enthesopathy, sacral and sacrococcygeal region (principal); M53.3 Sacrococcygeal disorders, not elsewhere classified; G89.29 Other chronic pain; M54.50 Low back pain, unspecified; E11.9 Type 2 diabetes mellitus without complications; M47.812 Spondylosis without myelopathy or radiculopathy, cervical region; E55.9 Vitamin D deficiency, unspecified; M17.11 Unilateral primary osteoarthritis, right knee; G25.0 Essential tremor; Z87.891 Personal history of nicotine dependence; Z79.84 Long term (current) use of oral hypoglycemic drugs; Z79.82 Long term (current) use of aspirin; Z79.899 Other long term (current) drug therapy; Z88.8 Allergy status to other drugs, medicaments and biological substances; Z91.048 Other nonmedicinal substance allergy status

== ENCOUNTER 2023-07-31 06:13 | Day surgery (SDC) | payer MEDICARE ==
[~2023-07-31] VITALS: Ht 165.1 cm; Wt 101.7 kg
[2023-07-31] MEDS ORDERED: ONDANSETRON 4MG 2ML VIAL As Ordered ONE (06:45)
[2023-07-31] MEDS ORDERED: propofoL 200 MG/20 ML VIAL As Ordered ONE (06:45)
[2023-07-31] MEDS ORDERED: LIDOCAINE 2% 100MG/5ML SDV (FOR ANES.) As Ordered ONE (06:45)
[2023-07-31] MEDS ORDERED: fentaNYL 100 MCG/2 ML INJECTION As Ordered ONE (06:45)
[2023-07-31] MEDS ORDERED: LR 1,000 ML IV SCH ×2 (07:05→08:20)
[2023-07-31 07:13] LABS: INR 1.01; PARTIAL THROMBOPLASTIN TIME 28.6 SECONDS (24.8-34.2)
[2023-07-31] MEDS: ceFAZolin SOD 2 GM in IV 1 EA IV ONE (07:45)
[2023-07-31] MEDS ORDERED: fentaNYL 100 MCG/2 ML INJECTION IV PRN (08:20)
[2023-07-31] MEDS ORDERED: ONDANSETRON 4MG 2ML VIAL IV PRN (08:20)
[2023-07-31] MEDS: HYDROMORPHONE HCL 0.5 MG/ 0.5 ML SYRINGE IV PRN (08:37)
[2023-07-31] MEDS: oxyCODONE 5MG TAB PO PRN (08:37)
[2023-07-31 10:30] VITALS: BP 134/64; TEMP 97.4; O2SAT 95
== END 2023-07-31 10:45 | disposition home or self-care (01) ==
LOC: M SDC 06:13
PROVIDERS: ATTEND Urology
DX: N13.30 Unspecified hydronephrosis (principal); I10 Essential (primary) hypertension; E11.9 Type 2 diabetes mellitus without complications; K76.0 Fatty (change of) liver, not elsewhere classified; G47.30 Sleep apnea, unspecified; D50.9 Iron deficiency anemia, unspecified; Z88.8 Allergy status to other drugs, medicaments and biological substances; J44.9 Chronic obstructive pulmonary disease, unspecified; Z79.82 Long term (current) use of aspirin; Z79.899 Other long term (current) drug therapy; Z79.51 Long term (current) use of inhaled steroids; Z79.84 Long term (current) use of oral hypoglycemic drugs; Z79.01 Long term (current) use of anticoagulants
CPT/HCPCS: 36415; 52332; 52351; 76000; 85610; 85730; C1769; C2617; J0690; J1170; J2405; J3010

== ENCOUNTER → 2023-08-16 | Outpatient (CLI) | payer MEDICARE | LOC: M PAIN 14:45 | PROVIDERS: ATTEND Nurse Practitioner Family | DX: M79.18 Myalgia, other site (principal); G89.29 Other chronic pain; E11.9 Type 2 diabetes mellitus without complications; E55.9 Vitamin D deficiency, unspecified; M17.11 Unilateral primary osteoarthritis, right knee; J44.9 Chronic obstructive pulmonary disease, unspecified; E87.6 Hypokalemia; Z87.891 Personal history of nicotine dependence; Z79.01 Long term (current) use of anticoagulants; Z79.82 Long term (current) use of aspirin; Z79.84 Long term (current) use of oral hypoglycemic drugs; Z79.899 Other long term (current) drug therapy; Z79.891 Long term (current) use of opiate analgesic; Z86.718 Personal history of other venous thrombosis and embolism; Z88.8 Allergy status to other drugs, medicaments and biological substances; Z91.048 Other nonmedicinal substance allergy status ==

== ENCOUNTER → 2023-10-17 | Outpatient (CLI) | payer MEDICARE ==
[~2023-10-17] MED LIST changes: +TRIAMCINOLONE ACETONIDE SUSP 40MG/ML 1ML VIAL As Ordered ONE; +diazePAM 5MG TABLET As Ordered ONE; +oxyCODONE 5MG TAB As Ordered ONE
== END ==
LOC: M PAIN 08:30
PROVIDERS: ATTEND Anesthesiology
DX: M79.18 Myalgia, other site (principal); G89.29 Other chronic pain; M54.50 Low back pain, unspecified; I35.0 Nonrheumatic aortic (valve) stenosis; E87.6 Hypokalemia; F32.A Depression, unspecified; E11.9 Type 2 diabetes mellitus without complications; M47.812 Spondylosis without myelopathy or radiculopathy, cervical region; E55.9 Vitamin D deficiency, unspecified; J44.9 Chronic obstructive pulmonary disease, unspecified; G25.0 Essential tremor; Z87.891 Personal history of nicotine dependence; Z79.01 Long term (current) use of anticoagulants; Z79.84 Long term (current) use of oral hypoglycemic drugs; Z79.82 Long term (current) use of aspirin; Z79.899 Other long term (current) drug therapy; Z88.8 Allergy status to other drugs, medicaments and biological substances; Z91.048 Other nonmedicinal substance allergy status
CPT/HCPCS: 20552; J0665; J3301

== ENCOUNTER → 2023-11-18 | Outpatient (CLI) | payer MEDICARE ==
[~2023-11-18] MED LIST changes: -TRIAMCINOLONE ACETONIDE SUSP 40MG/ML 1ML VIAL As Ordered ONE; -diazePAM 5MG TABLET As Ordered ONE; -oxyCODONE 5MG TAB As Ordered ONE
== END ==
LOC: M PAIN 09:45
PROVIDERS: ATTEND Nurse Practitioner Family
DX: G89.29 Other chronic pain (principal); M54.16 Radiculopathy, lumbar region; E11.9 Type 2 diabetes mellitus without complications; F32.A Depression, unspecified; E55.9 Vitamin D deficiency, unspecified; M17.11 Unilateral primary osteoarthritis, right knee; J44.9 Chronic obstructive pulmonary disease, unspecified; G25.0 Essential tremor; Z87.891 Personal history of nicotine dependence; Z79.01 Long term (current) use of anticoagulants; Z79.84 Long term (current) use of oral hypoglycemic drugs; Z79.899 Other long term (current) drug therapy; Z86.73 Personal history of transient ischemic attack (TIA), and cerebral infarction without residual deficits; Z88.8 Allergy status to other drugs, medicaments and biological substances; Z91.048 Other nonmedicinal substance allergy status; Z88.1 Allergy status to other antibiotic agents